=== PATIENT | female | born 1990 | race Caucasian/White ===

== ENCOUNTER 2017-08-17 10:23 | Emergency (ER) | payer OTHER ==
[2017-08-17 11:36] VITALS: BP 143/89
--- NOTE | 2017-08-17 12:02 | UC ---
HPI Febrile Illness - HPI Summary HPI Summary: [facility]. Caregiver reports that pt vomited X 2 last night and had a fever of 101 F. Was given a fever engineering aid this morning prior to arrival to clinic. [facility] caregivers concern for aspiration - History of Current Complaint Chief Complaint: UCRespiratory Time Seen by Provider: 08/17/17 11:05 Hx Obtained From: Family/Brick Cleaner Hx From Patient Unobtainable Due To: Other Hx Last Menstrual Period: unknown Onset/Duration: Started Hours Ago Timing: Intermittent Initial Severity: Mild Current Severity: Mild Pain Intensity: 0 Alleviating Factors: OTC Medicine Associated Signs and Symptoms: Vomiting - Risk Factors Serious Bacterial Infection Risk Factors: Negative - Additional Pertinent History Primary Care Physician: THONY - Allergy/Home Medications Allergies/Adverse Reactions: Allergies Allergy/AdvReac Type Severity Reaction Status Date / Time Sulfa (Sulfonamide Allergy Hives Verified 08/17/17 11:23 Antibiotics) Home Medications: Home Medications Acetaminophen TAB* [Tylenol TAB*] 650 mg PO Q4H PRN 08/17/17 [History Confirmed 08/17/17] Albuterol HFA INHALER* [Ventolin HFA Inhaler*] 1 puff INH Q4H PRN 08/17/17 [ History Confirmed 08/17/17] Budesonide Flexhaler 180 (NF) [Pulmicort Flexhaler 180 mcg/act (NF)] 180 mcg IN BID 08/17/17 [History Confirmed 08/17/17] Cetirizine* [ZyrTEC 10 MG TAB*] 10 mg PO DAILY 08/17/17 [History Confirmed 08/17] Diazepam TAB(*) [Valium TAB(*)] 10 mg PO Q8H PRN 08/17/17 [History Confirmed ] Ibuprofen TAB* [Motrin TAB* 400 MG] 400 mg PO Q6H PRN 08/17/17 [History Confirmed 08/17/17] Nystatin CREAM* [Nystatin Cream*] 1 applic TOPICAL BID PRN 08/17/17 [History Confirmed 08/17/17] Polyethylene Glycol 3350* [Miralax*] 17 gm PO DAILY 08/17/17 [History Confirmed 08/17/17] Ranitidine TAB (NF) [Zantac TAB (NF)] 150 mg PO DAILY 08/17/17 [History Confirmed 08/17/17] levETIRAcetam TAB* [Keppra TAB*] 500 mg PO BID 08/17/17 [History Confirmed 08/17] PMH/Surg Hx/FS Hx/Imm Hx Previously Healthy: No - Pt is wheelchair bound, non verbal, cognitive impaired - Surgical History Surgical History: Yes - Family History Known Family History: Positive: Cardiac Disease - Social History Occupation: Disabled Lives: Skilled Nursing Alcohol Use: None Substance Use Type: None Smoking Status (MU): Never Smoked Tobacco - Immunization History Most Recent Influenza Vaccination: 2015 Most Recent Tetanus Shot: 2007 Most Recent Pneumonia Vaccination: 2012 Review of Systems Constitutional: Fever Skin: Negative Eyes: Eye Redness ENT: Negative Respiratory: Negative Cardiovascular: Negative Gastrointestinal: Vomiting Genitourinary: Other - incontinent urine and stools Motor: Decreased ROM, Weakness Neurovascular: Other - decreased cognitive function Musculoskeletal: Decreased ROM Neurological: Weakness Is Patient Immunocompromised?: No All Other Systems Reviewed And Are Negative: Yes Physical Exam Triage Information Reviewed: Yes Completion Of Physical Exam Limited Due To: Other - pre-existing condition of significant cognitive impairment, non verbal Appearance: Ill-Appearing Vital Signs: Initial Vital Signs Temp 99.7 F 08/17/17 11:22 Pulse 106 08/17/17 11:22 Resp 22 08/17/17 11:22 BP 143/89 08/17/17 11:22 Pulse Ox 97 08/17/17 11:22 Vital Signs Reviewed: Yes Eye Exam: Other - scleritis ENT Exam: Other ENT: Positive: Other - limited exam, right ear canal cerument, left ear TM normal. Neck exam: Normal Neck: Positive: Nontender Respiratory Exam: Other Respiratory: Positive: Decreased breath sounds - bases Cardiovascular Exam: Normal Musculoskeletal: Positive: Strength Limited @, ROM Limited @ Neurological: Positive: Alert Psychological Exam: Normal - pt baseline as indicated by caregiver Skin Exam: Other - limited exam Diagnostics - Radiology No standard instances Radiology Interpretation Completed By: Radiologist - IMPRESSION: No evidence for aspiration pneumonia. Course/Dx - Course Course Of Treatment: Pt is non verbal, wheelchair bound with mulitiple comorbidites. Her rapid flu was negative, chest xray is negative, pt is incontinent of urine an dstool and is at high risk for infection. - Febrile Illness Differential Diagnoses: Fever of Unknown Origin, GI Disease, Pneumonia - Diagnoses Clinic Provider Diagnoses: fever unknown origin Discharge - Sign-Out/Discharge Documenting (check all that apply): Discharge - Discharge Plan Condition: Stable Disposition: HOME Prescriptions: Cephalexin SUSP* [Keflex SUSP 250 MG/5 ML*] 500 mg PO Q12H #200 ml Patient Education Materials: Fever in Adults (ED), Acute Nausea and Vomiting ( ED) Referrals: Pavel Ruiz MD [Primary Care Provider] - If Needed Additional Instructions: Please follow up with your PCP or return to clinic as needed. Your Rapid Flu test results were negative for Both Influenza A and Influenza B Xray: IMPRESSION: No evidence for aspiration pneumonia. - Billing Disposition and Condition Condition: STABLE Disposition: HOME
--- NOTE | 2017-08-17 12:16 | RAD ---
Indication: Emesis; concern for aspiration. Comparison: April 24, 2016 Technique: Sitting AP chest 1202 hours Report: Low lung volumes and mild subsegmental atelectasis. No compelling aspiration pneumonia evident. Negative for pleural effusion or pneumothorax. The heart, pulmonary vasculature, and mediastinal contours are unremarkable. IMPRESSION: No evidence for aspiration pneumonia.
== END 2017-08-17 12:36 | disposition home or self-care (01) ==
LOC: UCCORT 10:23
DX: R50.9 Fever, unspecified (principal); Z99.3 Dependence on wheelchair; Z88.2 Allergy status to sulfonamides
CPT/HCPCS: 71045; 87502; 99212; G0463

== ENCOUNTER 2018-08-28 09:25 | Emergency (ER) | payer MEDICAID, MEDICARE, OTHER ==
--- NOTE | 2018-08-28 10:32 | UC ---
General HPI - HPI Summary HPI Summary: Patient here with CARPENTER HELPER from [facility] - Patient nonverbal with profound delay. Has had a cough for the past three weeks. Saw PCP initially and said if it continued to go to urgent care. Patient has been getting nebulizers every 4 hours and cough medication every 6 hours around the clock. Has had a low grade temp. No vomiting. Loose stools. Does have a lot of mucus. Remains NPO as she has her G-tube. Has lost a few pounds. She normally is smiling and laughing but is not happy and often cries when she coughs. Meds: reviewed. - History of Current Complaint Chief Complaint: UCRespiratory Stated Complaint: COUGH,WHEEZING x3 WKS Time Seen by Provider: 08/28/18 10:09 Hx Last Menstrual Period: unknown Pain Intensity: 0 - Allergy/Home Medications Allergies/Adverse Reactions: Allergies Allergy/AdvReac Type Severity Reaction Status Date / Time Sulfa (Sulfonamide Allergy Hives Verified 08/28/18 10:14 Antibiotics) Home Medications: Home Medications guaiFENesin [Ri-Tussin] 10 ml PO Q6HR PRN 08/28/18 [History Confirmed 08/28/18] PMH/Surg Hx/FS Hx/Imm Hx Previously Healthy: No Neurological History: Other - profound developmental delay - Surgical History Surgical History: Unable to Obtain/Confirm - Family History Known Family History: Positive: Cardiac Disease - Social History Alcohol Use: None Substance Use Type: None Smoking Status (MU): Never Smoked Tobacco - Immunization History Most Recent Influenza Vaccination: 2015 Most Recent Tetanus Shot: 2007 Most Recent Pneumonia Vaccination: 2012 Review of Systems All Other Systems Reviewed And Are Negative: Yes Constitutional: Positive: Fever Respiratory: Positive: Cough Physical Exam Triage Information Reviewed: Yes Appearance: Well-Appearing Vital Signs: Initial Vital Signs Temp 98.9 F 08/28/18 10:07 Pulse 111 08/28/18 10:07 Resp 20 08/28/18 10:07 BP 102/60 08/28/18 10:07 Pulse Ox 98 08/28/18 10:07 Vital Signs Reviewed: Yes Eyes: Positive: Conjunctiva Inflamed ENT: Positive: Pharyngeal erythema, Other - Mucus in oral pharnyx. Poor dentition. Neck: Positive: Supple Respiratory: Positive: Other: - Coarse rhonchi heard throughout right lung. Diminished aeration over left lung Cardiovascular: Positive: RRR, No Murmur Abdomen Description: Positive: Nontender, Other: - gtube in place - no surrounding erythema or drainage Musculoskeletal: Positive: Other: - contracted upper and lower ext. Malnourished appearing Diagnostics - Radiology CXR Radiology Interpretation Completed By: Radiologist Summary of Radiographic Findings: No acute disease Chest CT Radiology Interpretation Completed By: Radiologist Summary of Radiographic Findings: No acute finding Course/Dx - Course Course Of Treatment: This is a 28 yr old with profound developmental delay who presents with 3 week cough history Assessment CXR: No acute finding Followed up with [facility] to determine if this is an aspiration event as I suspect she is aspirating on her secretion Chest CT: No acute finding I suspect her rhonchorous sounds are from microaspirationg Plan Recommend follow up with primary care physician. Follow up with platform material handling supervisor. Recommend switching rescue nebulizers to as needed Discontinue cough suppressant IF patient develops fever or signs of respiratory distress, increase in respiratory rate, work of breathing or low oxygen, return to urgent care or the ER - Diagnoses Provider Diagnosis: Aspiration into respiratory tract Discharge - Sign-Out/Discharge Documenting (check all that apply): Patient Departure All imaging exams completed and their final reports reviewed: Yes - Discharge Plan Condition: Fair Disposition: HOME Referrals: Nanci Meza DIETARY SERVICE AIDE [Primary Care Provider] - Additional Instructions: Recommend follow up with primary care physician. Follow up with platform material handling supervisor. Recommend switching rescue nebulizers to as needed Discontinue cough suppressant IF patient develops fever or signs of respiratory distress, increase in respiratory rate, work of breathing or low oxygen, return to urgent care or the ER - Billing Disposition and Condition Condition: FAIR Disposition: Home
[2018-08-28 12:19] VITALS: BP 108/64
== END 2018-08-28 12:25 | disposition home or self-care (01) ==
LOC: UCCORT 09:25
DX: T17.990A Other foreign object in respiratory tract, part unspecified in causing asphyxiation, initial encounter (principal); X58.XXXA Exposure to other specified factors, initial encounter; Y92.199 Unspecified place in other specified residential institution as the place of occurrence of the external cause; R05 Cough; R50.9 Fever, unspecified; R62.50 Unspecified lack of expected normal physiological development in childhood; Z88.2 Allergy status to sulfonamides
CPT/HCPCS: 71045; 71250; 99212; G0463

== ENCOUNTER 2018-12-12 11:25 | Emergency (ER) | payer OTHER ==
[2018-12-12 12:06] VITALS: BP 116/67
--- NOTE | 2018-12-12 12:44 | UC ---
Eye Complaint HPI - HPI Summary HPI Summary: 28 year old female with eye concern. c/o R eye redness that she awoke with today. Crusty and drainage noted according to medical staff. no fever. acting normal otherwise. [ End ] - History of Current Complaint Chief Complaint: UCEye Stated Complaint: BILATERAL EYE CONCERN Time Seen by Provider: 12/12/18 12:41 Hx Obtained From: Patient, Family/Plumbing Inspector Hx Last Menstrual Period: unknown Onset/Duration: Sudden Onset Pain Intensity: 0 Associated Signs And Symptoms: Positive: Drainage (Purulent) - Allergies/Home Medications Allergies/Adverse Reactions: Allergies Allergy/AdvReac Type Severity Reaction Status Date / Time Sulfa (Sulfonamide Allergy Hives Verified 12/12/18 11:52 Antibiotics) PMH/Surg Hx/FS Hx/Imm Hx Previously Healthy: Yes GI/ History: Gastroesophageal Reflux Neurological History: Seizures - Surgical History Surgical History: Unable to Obtain/Confirm Surgery Procedure, Year, and Place: G tube placed 10/18/17 - Family History Known Family History: Positive: Cardiac Disease - Social History Alcohol Use: None Substance Use Type: None Smoking Status (MU): Never Smoked Tobacco - Immunization History Most Recent Influenza Vaccination: 2016 Most Recent Tetanus Shot: 2007 Most Recent Pneumonia Vaccination: 2012 Review of Systems All Other Systems Reviewed And Are Negative: Yes Eyes: Positive: Blurred Vision, Drainage, Eye Redness Is Patient Immunocompromised?: No Physical Exam Triage Information Reviewed: Yes Appearance: Well-Appearing, No Pain Distress, Well-Nourished Vital Signs: Initial Vital Signs Temp 97.7 F 12/12/18 11:57 Pulse 98 12/12/18 11:57 Resp 20 12/12/18 11:57 BP 116/67 12/12/18 11:57 Pulse Ox 97 12/12/18 11:57 Vital Signs Reviewed: Yes Eye Exam: Normal Eyes: Positive: Conjunctiva Inflamed, Discharge ENT Exam: Normal Neck exam: Normal Neck: Positive: 1 Respiratory Exam: Normal Cardiovascular Exam: Normal Musculoskeletal Exam: Normal Neurological Exam: Normal Psychological Exam: Normal Skin Exam: Normal Eye Complaint Course/Dx - Differential Dx/Diagnosis Differential Diagnosis/HQI/PQRI: Conjunctivitis Provider Diagnosis: Conjunctivitis of right eye Discharge - Sign-Out/Discharge Documenting (check all that apply): Patient Departure All imaging exams completed and their final reports reviewed: No Studies - Discharge Plan Condition: Good Disposition: HOME Prescriptions: Erythromycin OPTH OINT* [Erythromycin 0.5% OPTH OINT*] 1 applic RIGHT EYE TID 7 Days #1 ophth.oint Patient Education Materials: Conjunctivitis (ED) Referrals: Nanci Meza ORDER TAKERS SUPERVISOR [Primary Care Provider] - If Needed - Billing Disposition and Condition Condition: GOOD Disposition: Home
== END 2018-12-12 13:02 | disposition home or self-care (01) ==
LOC: UCCORT 11:25
DX: H10.9 Unspecified conjunctivitis (principal); K21.9 Gastro-esophageal reflux disease without esophagitis; Z88.2 Allergy status to sulfonamides
CPT/HCPCS: 99212; G0463

== ENCOUNTER 2019-01-31 09:35 | Emergency (ER) | payer OTHER ==
[2019-01-31 10:15] VITALS: BP 116/96
--- NOTE | 2019-01-31 10:24 | UC ---
Respiratory Complaint HPI - HPI Summary HPI Summary: 28-year-old female, nonverbal with cerebral palsy history from a snf in [place] who has had an upper respiratory illness over the past few days. She vomited one time last evening and today the staff sent her here for chest x-ray concerns she may have aspirated. There is a caregiver with the patient. She is wheelchair bound and nonverbal. She does respond to voice. - History of Current Complaint Chief Complaint: UCRespiratory Stated Complaint: VOMITING Time Seen by Provider: 01/31/19 09:53 Hx Obtained From: Family/Math And Sciences Department Chair Hx Last Menstrual Period: unknown ?: No Onset/Duration: Gradual Onset Severity Initially: Mild Severity Currently: Mild Pain Intensity: 0 Character: Cough: Nonproductive - Nonproductive cough but loose. Aggravating Factors: Nothing Alleviating Factors: Nothing Associated Signs And Symptoms: Positive: Fever - Low-grade fever today but has not had a fever prior to this morning., URI, Nasal Congestion - Allergies/Home Medications Allergies/Adverse Reactions: Allergies Allergy/AdvReac Type Severity Reaction Status Date / Time Sulfa (Sulfonamide Allergy Hives Verified 01/31/19 10:15 Antibiotics) PMH/Surg Hx/FS Hx/Imm Hx Previously Healthy: No Respiratory History: Asthma - Surgical History Surgical History: Unable to Obtain/Confirm Surgery Procedure, Year, and Place: G tube placed 10/18/17 - Family History Known Family History: Positive: Cardiac Disease - Social History Lives: Long-Term Alcohol Use: None Substance Use Type: None Smoking Status (MU): Never Smoked Tobacco - Immunization History Most Recent Influenza Vaccination: 2015 Most Recent Tetanus Shot: 2007 Most Recent Pneumonia Vaccination: 2013 Review of Systems All Other Systems Reviewed And Are Negative: Yes Constitutional: Positive: Fever - Low-grade fever here. ENT: Positive: Nasal Discharge - Clear nasal coryza Respiratory: Positive: Cough - Moist cough worse today since vomiting once last evening. Musculoskeletal: Positive: Other: - Patient is contractured Is Patient Immunocompromised?: No Physical Exam Triage Information Reviewed: Yes Appearance: No Pain Distress, Well-Nourished, Ill-Appearing - Mildly ill appearing Vital Signs: Initial Vital Signs Temp 99.5 F 01/31/19 10:11 Pulse 143 01/31/19 10:11 Resp 26 01/31/19 10:11 BP 116/96 01/31/19 10:11 Pulse Ox 97 01/31/19 10:11 Vital Signs Reviewed: Yes Eyes: Positive: Conjunctiva Clear ENT: Positive: Pharynx normal, Nasal drainage - Clear nasal coryza, TMs normal - Unable to visualize tympanic membranes due to cerumen in ear canal., Uvula midline Neck: Positive: Supple Respiratory: Positive: No respiratory distress, No accessory muscle use, Rhonchi - Scattered rhonchi. Cardiovascular: Positive: No Murmur, Brisk Capillary Refill, Tachycardia Musculoskeletal: Positive: Other: - Patient's arms and legs are contractured. Neurological: Positive: Other: - Patient responds to voice but is nonverbal. Respiratory Course/Dx - Course Course Of Treatment: I feel is necessary for the patient to be evaluated in the emergency room because of her tachycardia, fever, moist cough. The caregiver with her feels comfortable taking her to the emergency room from here. - Differential Dx/Diagnosis Provider Diagnosis: URI (upper respiratory infection), Fever, Tachycardia Discharge ED - Sign-Out/Discharge Documenting (check all that apply): Patient Departure All imaging exams completed and their final reports reviewed: No Studies - Discharge Plan Condition: Fair Disposition: HOME-RECOMMEND TO ED Referrals: Nanci Meza REFRIGERATION SUPERVISOR [Primary Care Provider] - Additional Instructions: After the evaluation by the nurse practitioner, it is recommended that you go to the emergency room for further evaluation of cough, fever, possible aspiration where you should receive additional testing that can be completed in the emergency department. It is recommended that you go directly to the emergency department. This evaluation may include blood work or imaging. This testing will be directed and decided by the provider that evaluates you within the emergency department. If symptoms worsen, chute puller and call 911. - Billing Disposition and Condition Condition: FAIR Disposition: Home-Recommend to ED
== END 2019-01-31 10:22 | disposition home health service (06) ==
LOC: UCCORT 09:35
DX: J06.9 Acute upper respiratory infection, unspecified (principal); R50.9 Fever, unspecified; R00.0 Tachycardia, unspecified; H61.20 Impacted cerumen, unspecified ear; G80.9 Cerebral palsy, unspecified; Z88.2 Allergy status to sulfonamides
CPT/HCPCS: 99212; G0463

== ENCOUNTER 2019-03-08 10:03 | Emergency (ER) | payer OTHER ==
[2019-03-08 10:35] VITALS: BP 105/66
--- NOTE | 2019-03-08 11:30 | UC ---
Eye Complaint HPI - HPI Summary HPI Summary: 28-year-old female comes in with a chief complaint of bilateral eye discharge and redness. All started yesterday. Some the discharge is crusting. Cleaning and off makes it better. No clinic any upper respiratory tract infection symptoms. No known trauma. No contacts. - History of Current Complaint Chief Complaint: UCEye Stated Complaint: B/L EYE COMPLAINT Time Seen by Provider: 03/08/19 11:15 Hx Last Menstrual Period: unknown Pain Intensity: 0 - Allergies/Home Medications Allergies/Adverse Reactions: Allergies Allergy/AdvReac Type Severity Reaction Status Date / Time Sulfa (Sulfonamide Allergy Hives Verified 03/08/19 10:28 Antibiotics) PMH/Surg Hx/FS Hx/Imm Hx Previously Healthy: Yes - Surgical History Surgical History: Yes Surgery Procedure, Year, and Place: G tube placed 10/18/17 - Family History Known Family History: Positive: Cardiac Disease - Social History Alcohol Use: None Substance Use Type: None Smoking Status (MU): Never Smoked Tobacco - Immunization History Most Recent Influenza Vaccination: 2015 Most Recent Tetanus Shot: 2007 Most Recent Pneumonia Vaccination: 2012 Review of Systems All Other Systems Reviewed And Are Negative: Yes Constitutional: Positive: Negative Skin: Positive: Negative Eyes: Positive: Drainage, Eye Redness ENT: Positive: Negative Respiratory: Positive: Negative Cardiovascular: Positive: Negative Gastrointestinal: Positive: Negative Motor: Positive: Negative Neurovascular: Positive: Negative Musculoskeletal: Positive: Negative Neurological: Positive: Negative Psychological: Positive: Negative Is Patient Immunocompromised?: No Physical Exam Triage Information Reviewed: Yes Appearance: Well-Appearing, No Pain Distress, Well-Nourished Vital Signs: Initial Vital Signs Temp 97.9 F 03/08/19 10:30 Pulse 95 03/08/19 10:30 Resp 20 03/08/19 10:30 BP 105/66 03/08/19 10:30 Pulse Ox 97 03/08/19 10:30 Vital Signs Reviewed: Yes Eyes: Positive: Conjunctiva Inflamed, Discharge ENT: Negative: Nasal congestion Neck: Positive: Supple Respiratory: Positive: No respiratory distress Musculoskeletal Exam: Normal - NORMAL BASELINE Neurological Exam: Normal - NORMAL BASELINE Psychological: Positive: Normal Response To Family Skin Exam: Normal Eye Complaint Course/Dx - Differential Dx/Diagnosis Provider Diagnosis: Conjunctivitis Discharge ED - Sign-Out/Discharge Documenting (check all that apply): Patient Departure All imaging exams completed and their final reports reviewed: No Studies - Discharge Plan Condition: Stable Disposition: HOME Prescriptions: Tobramycin 0.3% OPHTH.TONE* 1 drop BOTH EYES Q4H #1 btl Patient Education Materials: Conjunctivitis (ED) Referrals: Nanci Meza, OUTDOOR PURSUITS INSTRUCTOR [Primary Care Provider] - Additional Instructions: FOLLOW UP WITH YOUR DOCTOR IF NOT COMPLETELY IMPROVED. GET REEVALUATED SOONER IF NOT IMPROVING OR YOUR CONDITION WORSENS OR ANY QUESTIONS OR CONCERNS - Billing Disposition and Condition Condition: STABLE Disposition: Home
== END 2019-03-08 11:35 | disposition home or self-care (01) ==
LOC: UCCORT 10:03
DX: H10.9 Unspecified conjunctivitis (principal); Z88.2 Allergy status to sulfonamides
CPT/HCPCS: 99212; G0463

== ENCOUNTER 2019-05-27 13:56 | Observation (INO) | payer OTHER ==
--- OUTSIDE RECORDS SUMMARY | 2019-05-27 14:12 | XMS REPORT | Continuity of Care Document ---
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 Social History Type Date Description Comments Sex Unknown ETOH Use Denies alcohol use Tobacco Use Start: Unknown Patient denies history of smoking Recreational Drug Use Denies Drug Use Allergies, Adverse Reactions, Alerts Active Allergies Reaction Severity Comments Date Sulfa Drugs 04/30/2018 Medications Active Medications SIG Qnty Indications Ordering Date Provider Budesonide 1 vial via neb twice Unknown 0.25mg/2ML a day Suspension Jevity 1.5 Jose Rafael 6am, 10am, 3pm 8pm- Unknown Liquid 45ml Levetiracetam 1.5 milliliters by Unknown 100mg/ml mouth once daily Solution Polyethylene Glycol One cap full daily Unknown 1000 Liquid Miralax as needed Unknown [id number] Packet Ranitidine HCL 10 milliliters by Unknown mouth twice a day as 150mg/10ML Syrup needed Cetirizine HCL 1 by peg tube every Unknown 10mg day Tablets Diazepam as needed for dental Unknown 5mg Tablets appointments Azelastine HCL 1 drop in both eyes Unknown (Ophthalmic) twice daily as 0.05% needed Solution Albuterol Sulfate nebulized every 4 Unknown hours as needed (2.5mg/3ML) 0.083% Nebulizer Nystatin-Triamcinolon apply a thin layer Unknown e to affected area 437413-1.1Unit/GM-% twice daily for Cream 10-14 days. Guaifenesin ac 5 milliliters by Unknown mouth three times a 100-10mg/5ML Syrup day as needed for cough Ibuprofen 200 1-2 tabs by mouth Unknown 200mg three times a day as Tablets needed Acetaminophen Unknown 650mg/20.3ML Solution Immunizations Description No Information Available Vital Signs Date Vital Result Comment 04/30/2018 3:06pm Respiratory Rate 15 /min Height 63 inches 5'3" Weight 88.38 lb per aid BMI (Body Mass Index) 15.7 kg/m2 BSA (Body Surface Area) 1.37 m2 [place] body weight in kilograms 52 kg Results Description No Information Available Procedures Description No Information Available Medical Devices Description No Information Available Encounters Description No Information Available Assessments Date Code Description Provider 05/13/2019 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 whether with hypoxia or hypercapnia 02/02/2019 R00.0 Tachycardia, unspecified Quin Vasquez M.D. 02/02/2019 G80.9 Cerebral palsy, unspecified Quin Vasquez M.D. 02/02/2019 J69.0 Pneumonitis due to inhalation of food and Quin Vasquez M.D. vomit 02/01/2019 J18.9 Pneumonia, unspecified organism Quin Vasquez M.D. 02/01/2019 J96.00 Acute respiratory failure, unspecified Quin Vasquez M.D. whether with hypoxia or hypercapnia 02/01/2019 R00.0 Tachycardia, unspecified Quin Vasquez M.D. 02/01/2019 G80.9 Cerebral palsy, unspecified Quin Vasquez M.D. 01/31/2019 J18.9 Pneumonia, unspecified organism Quin Vasquez M.D. 01/31/2019 J96.00 Acute respiratory failure, unspecified Quin Vasquez M.D. whether with hypoxia or hypercapnia 01/31/2019 R00.0 Tachycardia, unspecified Quin Vasquez M.D. 01/31/2019 G80.9 Cerebral palsy, unspecified Quin Vasquez M.D. Plan of Treatment 05/13/2019 - Cristian Palumbo MD,FACSZ93.1 Gastrostomy statusComments:Nursing has worries about dryness of the PEG tube on the outside, there is no leaking cracks, no blockages, no redness or significant leakage at the skin site, tolerating tube feeds. i would not recommend scheduled exchange unless there is problems with the tube function or leakage. this was a difficult PED tube to be placed. Functional Status Description No Information Available Mental Status Description No Information Available Referrals Description No Information Available
[2019-05-27] MEDS ORDERED: NS 0.9% 1000 ML** 1,000 ML IV ONE ×2 (14:45→16:48)
--- NOTE | 2019-05-27 14:47 | ED ---
Respiratory - HPI Summary HPI Summary: The patient is a 29 y/o F presenting to [facility] accompanied by family with a chief complaint of vomiting with possible aspiration occurring at 1200 today. Per family, the patient had been sitting at rest in the wheelchair, and she suddenly vomited twice. There is concern for aspiration. She has been seemingly dyspneic since the episode. She was recently discharged from the ICU in [place] for aspiration PNA with abx finished. PMHx: cerebral palsy, feeding tube, asthma with albuterol treatment. Nonsmoker, no EtOH, no substance use. Medications reviewed. Allergies noted. Level 5 Caveat secondary to patient's history of cerebral palsy and nonverbal. 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 Hx From Patient Unobtainable Due To: Other - Level 5 Caveat secondary to patient 's history of cerebral palsy, nonverbal Initial Severity: Moderate Current Severity: Mild Pain Intensity: 0 Sputum Amount: None Associated Signs and Symptoms: Dyspnea - Allergy/Home Medications Allergies/Adverse Reactions: Allergies Allergy/AdvReac Type Severity Reaction Status Date / Time Sulfa (Sulfonamide Allergy Hives Verified 03/08/19 10:28 Antibiotics) Home Medications: Home Medications Acetaminophen SUPP* [Tylenol Supp*] 650 mg RI Q6H PRN 05/27/19 [History Confirmed 05/27/19] Acetaminophen TAB* [Tylenol TAB*] 650 mg PO Q6H PRN 05/27/19 [History Confirmed 05/27/19] Albuterol 2.5MG/3ML (0.083%)* [Ventolin 2.5 MG/3 ML NEB.TONE*] 2.5 mg INH Q4H PRN 05/27/19 [History Confirmed 05/27/19] Bacitracin OINTMENT* 1 applic TOPICAL BID PRN 05/27/19 [History Confirmed ] Budesonide [Pulmicort] 1 mg INH BID PRN 05/27/19 [History Confirmed 05/27/19] Cetirizine* [ZyrTEC 10 MG TAB*] 10 mg PEG TUBE DAILY 05/27/19 [History Confirmed 05/27/19] Diazepam TAB(*) [Valium TAB(*)] 5 mg PEG TUBE DAILY PRN 05/27/19 [History Confirmed 05/27/19] Ibuprofen TAB* [Advil TAB*] 400 mg PEG TUBE Q6H PRN 05/27/19 [History Confirmed 05/27/19] Ketotifen Fumarate [Zaditor] 0.025 % BOTH EYES BID 05/27/19 [History Confirmed 05/27/19] Lactose-Reduced Food/Fiber [Jevity Plus] 948 ml PEG TUBE DAILY 05/27/19 [ History Confirmed 05/27/19] Nystatin CREAM* [Nystatin Cream*] 1 applic TOPICAL DAILY PRN 05/27/19 [History Confirmed 05/27/19] Sodium Phosphate ADULT ENEMA* [Fleet Enema*] 1 enema RI Q4D PRN 05/27/19 [ History Confirmed 05/27/19] levETIRAcetam [Keppra LIQ] 5 ml PEG TUBE QAM 05/27/19 [History Confirmed ] levETIRAcetam [Keppra] 10 ml PEG TUBE BEDTIME 05/27/19 [History Confirmed ] raNITIdine SOLN* (NF) ORALSYR [Zantac SOLN* ORALSYR (NF)] 75 mg PEG TUBE DAILY PRN 05/27/19 [History Confirmed 05/27/19] PMH/Surg Hx/FS Hx/Imm Hx Endocrine/Hematology History: Denies: Hx Diabetes Respiratory History: Reports: Hx Asthma Neurological History: Reports: Other Neuro Impairments/Disorders - cerebral palsy - Surgical History Surgical History: Yes Surgery Procedure, Year, and Place: G tube placed 10/18/17 Infectious Disease History: No Infectious Disease History: Denies: Traveled Outside the [place] in Last 30 Days - Family History Known Family History: Positive: Cardiac Disease - Social History Alcohol Use: None Hx Substance Use: No Substance Use Type: Reports: None Hx Tobacco Use: No Smoking Status (MU): Never Smoked Tobacco Review of Systems Positive: Other - dyspnea Positive: Vomiting All Other Systems Reviewed And Are Negative: No - Comments Additional Review of Systems Comments: Level 5 Caveat secondary to patient's history of cerebral palsy, nonverbal Physical Exam - Summary Physical Exam Summary: Constitutional: Well-developed, Well-nourished, Alert. Sitting in her wheelchair. (-) Distressed Skin: Warm, Dry HENT: Normocephalic; Atraumatic Eyes: Conjunctiva normal Neck: Musculoskeletal ROM normal neck. (-) JVD, (-) Stridor, (-) Tracheal deviation Cardio: Rhythm regular, rate tachycardic, Heart sounds normal; Intact distal pulses; Radial pulses are 2+ and symmetric. (-) Murmur Pulmonary/Chest wall: Effort normal. (-) Respiratory distress, (+) Mild wheezing bilaterally, (-) Rales Abd: Soft, (-) tenderness, (-) Distension, (-) Guarding, (-) Rebound Musculoskeletal: (-) Edema, Contracted upper extremities Lymph: (-) Cervical adenopathy Neuro: Alert, She does look around the room to stimuli Psych: Mood and affect Normal Triage Information Reviewed: Yes Vital Signs On Initial Exam: Initial Vitals Temp Pulse Resp BP Pulse Ox 99.5 F 120 18 127/97 96 05/27/19 13:59 05/27/19 13:59 05/27/19 13:59 05/27/19 13:59 05/27/19 13:59 Vital Signs Reviewed: Yes Completion Of Physical Exam Limited Due To: Level 5 - cerebral palsy, nonverbal Procedures - Sedation Patient Received Moderate/Deep Sedation with Procedure: No Diagnostics - Vital Signs Vital Signs Temp Pulse Resp BP Pulse Ox 05/27/19 13:59 99.5 F 120 18 127/97 96 - Laboratory Result Diagrams: 05/27/19 16:08 05/27/19 16:08 Lab Statement: Any lab studies that have been ordered have been reviewed, and results considered in the medical decision making process. - Radiology CXR Radiology Interpretation Completed By: Radiologist Summary of Radiographic Findings: Impression: No active cardiopulmonary disease. ED physician has reviewed this report. - EKG 1534 Cardiac Rate: Tachycardia - 122 bpm EKG Rhythm: Sinus Tachycardia Summary of EKG Findings: Sinus tachycardia at 122 bpm. No STEMI. ED physician has reviewed and interpreted this EKG. Re-Evaluation - Re-Evaluation First Eval Re-Evaluation Time: 17:30 Comment: Family aware and agree with admission. Disposition - Course Course Of Treatment: Patient is here with suspected aspiration. Patient does have coarse breath sounds bilaterally, is borderline hypoxemic, and tachycardic. Patient is a very hard sticks only once her cultures was sent. Patient had normal lactate. Patient is given a liter of IV fluids. Patient was recently admitted to the ICU in [place] for aspiration pneumonia so she is given a dose of cefepime. Patient was given some albuterol with mild improvement in her symptoms. Patient had a chest x-ray which did not show a pneumonia. However, given patient's hypoxemia, tachycardia, and quality of her breast risk status, patient was admitted to the hospital - Diagnoses Provider Diagnoses: Aspiration pneumonitis, Tachycardia, Hypoxemia - Physician Notifications Discussed Care Of Patient With: Ashley Thomson - hospitalist Time Discussed With Above Provider: 17:30 Instructed by Provider To: Other - I discussed the patients case with Dr. Thomson , who accepts the patient for admission. Discharge ED - Sign-Out/Discharge Documenting (check all that apply): Patient Departure - Patient accepted for admission by Dr. Thomson. - Discharge Plan Condition: Stable Disposition: ADMITTED TO [facility] Referrals: Nanci Meza, EPIC AMBULATORY ANALYST [Primary Care Provider] - - Billing Disposition and Condition Condition: STABLE Disposition: Admitted to [facility] - Attestation Statements Document Initiated by Fely: Yes Documenting Scribe: Betsy Garcia Provider For Whom Fely is Documenting (Include Credential): Dr. Edgar Sanchez MD Scribe Attestation: Betsy Reinoso scribed for Dr. Edgar Sanchez MD on 05/27/19 at 2027. Scribe Documentation Reviewed: Yes Provider Attestation: The documentation as recorded by the Betsy harrington accurately reflects the service I personally performed and the decisions made by me, Dr. Edgar Sanchez MD Status of Scribe Document: Viewed
[2019-05-27] MEDS ORDERED: Albuterol 2.5 MG/3 ML NEB.SOL* (0.083%) INH ONE (16:03)
[2019-05-27 16:33] LABS: Troponin I 0.01 ng/mL (<0.03)
[2019-05-27] MEDS ORDERED: Cefepime(*) 1 GM in NS 0.9% 50 ML* 50 ML IVPB ONE (16:36)
[2019-05-27 16:39] LABS: ABS Eosinophils 0.2 10^3/ul (0-0.6); ABS Monocytes 0.7 10^3/ul (0-0.8); ABS Neutrophils 6.4 10^3/ul (1.5-7.7); Calcium 8.2 mg/dL (8.6-10.3); Eosinophil % 2.3 %; Hematocrit 43 % (35-47); Hemoglobin 14.8 g/dL (12.0-16.0); Lymphocyte % 12.2 %; Mean Corpuscular HGB Conc 35 g/dL (31-36); Mean Corpuscular Hemoglobin 32 pg (27-31); Mean Corpuscular Volume 91 fL (80-97); Nucleated Red Blood Cells % 0.1; Platelet Count 189 10^3/uL (150-450); Potassium 4.2 mmol/L (3.5-5.0); Red Blood Count 4.67 10^6 /uL (3.70-4.87); Red Cell Distribution Width 13 % (10-15); Total Bilirubin 0.3 mg/dL (0.2-1.0); White Blood Count 8.3 10^3/uL (3.5-10.8)
[2019-05-27 16:45] LABS: Albumin/Globulin Ratio 1.7 (1-3); BUN/Creatinine Ratio 41.7 (8-20); EGFR African American 256.1 (>60); EGFR Non-African American 211.6 (>60); Globulin 2.4 g/dL (2-4); Total Protein 6.4 g/dL (6.4-8.9)
[2019-05-27] MEDS ORDERED: DEXTROSE IV ONE (17:00)
[2019-05-27] MEDS ORDERED: CEFEPIME 1 GM IV ONE (17:00)
[2019-05-27] MEDS ORDERED: Budesonide NEB* 0.5 MG/2 ML NEB.SOLN INH PRN (20:16)
[2019-05-27] MEDS: Albuterol 2.5 MG/3 ML NEB.SOL* (0.083%) INH PRN (21:39)
--- NOTE | 2019-05-27 21:50 | HP ---
CC: Nanci Meza NP * HISTORY AND PHYSICAL: DATE OF ADMISSION: 05/27/19 PROVIDER: Ana Maria Dickerson NP PRIMARY CARE PROVIDER: Nanci Meza NP ATTENDING PHYSICIAN WHILE IN THE HOSPITAL: Dr. Kimmie Ferreira * (dictated by Ana Maria Dickerson NP). CHIEF COMPLAINT: Vomiting, cough. HISTORY OF PRESENT ILLNESS: Ms. Rogers is a 29-year-old female with past medical history significant for cerebral palsy who presented to the emergency room after 1 episode of projectile vomiting while at a program. Her grandmother is her legal guardian. Staff from records and grandmother provided the history of present illness. Per the staff, they were called from program after the patient had 1 episode of projectile vomiting and concern for aspiration. The grandmother did report the patient was recently treated for pneumonia. Due to their concern of possible aspiration pneumonia, the patient was brought to the emergency room for further evaluation. The grandmother reports that the patient does usually receive albuterol neb on a daily basis every 4 hours for difficulty breathing, wheezing, and cough. They deny any recent fevers, chills. The patient is calm and cooperative, resting on the stretcher in the emergency room. While in the emergency room, the patient had routine lab work drawn which was essentially within normal limits. Chest x-ray showed no acute process. Due to the patient's tachypnea and presumed aspiration, Hospital Medicine was asked to see and evaluate for admission. PAST MEDICAL HISTORY: Significant for: 1. Cerebral palsy. The patient is nonverbal with profound intellectual disability and wheelchair bound. 2. History of seizure disorder. 3. Asthma. 4. Constipation. HOME MEDICATIONS: Include: 1. Jevity 1.2 jose 4 cans daily. 2. MiraLAX 17 g via PEG tube every other day. 3. Pulmicort 1 neb twice daily. 4. Keppra 1000 mg at bedtime. 5. Keppra 500 mg in the a.m. 6. Ranitidine 150 mg via PEG tube daily. ALLERGIES: To SULFA. FAMILY HISTORY: Maternal grandfather with a pacemaker and [place] in his 50s, maternal grandmother with bladder cancer. SOCIAL HISTORY: The patient currently resides at the [facility]. Her grandmother is her legal guardian. She does not smoke, drink, or use any illicit drugs. She is a full code. REVIEW OF SYSTEMS: Limited due to the patient's cerebral palsy. She has no grimacing with palpation of her abdomen. Her abdomen is soft. She is alert. Her eyes are open. She is nonverbal. PHYSICAL EXAMINATION GENERAL: At this time, Ms. Rogers is awake, eyes are open. She is resting on the stretcher in the emergency room. She does have a moist cough. She does not appear to be in any acute distress. VITAL SIGNS: Blood pressure 114/77, heart rate 123, respirations 30, O2 saturation 95% on room air, temperature 99.5. HEENT: Head is atraumatic. Mucous membranes are dry. Pupils are equal and reactive to light. Head is normocephalic. NECK: Supple. LUNGS: Clear to auscultation with coarse rhonchi in the upper airway. CARDIAC: She is tachycardic on the monitor. There are no rubs or gallops. ABDOMEN: Soft and nontender. Bowel sounds are present x4. EXTREMITIES: Upper and lower extremities are contracted. There is no edema. They are atrophied. NEUROLOGIC: She is nonverbal, unable to follow commands. Extremities are contracted. Her eyes are open. She is alert. SKIN: Intact. LABORATORY DATA AND DIAGNOSTIC STUDIES: WBCs are 8.3, RBCs 4.67, hemoglobin 14.8, hematocrit 43, platelet count 189. Sodium 139, potassium 4.2, chloride 106, carbon dioxide is 22, anion gap is 11, BUN 15, creatinine 0.36, lactic acid is 0.7. calcium 8.2. ASTs were 23, ALTs were 22, alkaline phosphatase was 80. She had a chest x-ray, radiologist's impression: No active cardiopulmonary disease. She had an electrocardiogram which showed sinus tachycardia at a rate of 122. ASSESSMENT AND PLAN: Ms. Rogers is a 29-year-old female with past medical history significant for profound cerebral palsy, asthma, constipation, and history of seizure disorder who presented to the emergency room after an episode of vomiting with concern for aspiration. She will be admitted under observation for: 1. Cough and congestion. The patient does have a cough. It appears that she likely has aspiration pneumonitis. I will start her on Augmentin via the PEG tube 600 mg b.i.d. Her upper airway does have coarse rhonchi. We will continue with respiratory suctioning p.r.n. She can have albuterol nebulizer as needed for shortness of breath and cough. We will continue her home Pulmicort as previously prescribed. She is n.p.o., she takes nothing by mouth. We can resume her Jevity tomorrow. I will leave her n.p.o. overnight and she can have free fluid water flushes with meds at 120 cc. 2. Seizure disorder. The patient will continue on her Keppra as previously prescribed. 3. Constipation. She will continue on MiraLAX every other day. 4. FEN. She gets Jevity 1.2 jose tube feeding. She is n.p.o., no oral intake. 5. DVT prophylaxis. She is low risk. I will place her on SCDs. 6. Code status. She is a full code. TIME SPENT: Time spent on this admission was 60 minutes, greater than half that time was spent at the bedside reviewing the events leading thus far to her hospitalization, performing physical exam, and reviewing my plan of care. I have discussed this with my attending, Dr. Kimmie Ferreira; she is in agreement with my plan. ANA MARIA DICKERSON, AEROSPACE TECHNICIAN [id number]/[facility] #: [id number] SHORTY
[2019-05-27] MEDS: levETIRAcetam LIQ* 500 MG/5 ML UDC PEG TUBE SCH (23:11)
[2019-05-28 05:57] LABS: ABS Eosinophils 0.2 10^3/ul (0-0.6); ABS Lymphocytes 1.5 10^3/ul (1.0-4.8); ABS Monocytes 0.7 10^3/ul (0-0.8); ABS Neutrophils 3.2 10^3/ul (1.5-7.7); Eosinophil % 4.1 %; Hematocrit 40 % (35-47); Hemoglobin 14.2 g/dL (12.0-16.0); Lymphocyte % 25.9 %; Mean Corpuscular HGB Conc 36 g/dL (31-36); Mean Corpuscular Hemoglobin 32 pg (27-31); Mean Corpuscular Volume 91 fL (80-97); Mean Platelet Volume 9.9 fL (7.4-10.4); Platelet Count 193 10^3/uL (150-450); Red Cell Distribution Width 13 % (10-15); White Blood Count 5.6 10^3/uL (3.5-10.8)
[2019-05-28 06:12] LABS: BUN/Creatinine Ratio 23.5 (8-20); Calcium 8.4 mg/dL (8.6-10.3); EGFR African American 273.6 (>60); EGFR Non-African American 226.1 (>60)
[2019-05-28] MEDS ORDERED: Amoxicill/Clavulan ES* ORALSYR 120 MG/ML PO SCH (09:00)
[2019-05-28] MEDS: Albuterol 2.5 MG/3 ML NEB.SOL* (0.083%) INH PRN ×3 (09:26→17:48)
[2019-05-28] MEDS: Famotidine SUSP ORALSYR 8 MG/ML PEG TUBE SCH (10:40)
[2019-05-28] MEDS: levETIRAcetam LIQ* 500 MG/5 ML UDC PEG TUBE SCH ×2 (10:41→21:12)
[2019-05-28] MEDS: Amoxicill/Clavulan ES* ORALSYR 120 MG/ML PO SCH ×2 (10:42→21:12)
--- NOTE | 2019-05-28 18:31 | PN ---
Subjective Date of Service: 05/28/19 Interval History: Pt is non-verbal. Grandmother states pt is improved but not back to normal due to persistent coughing. Objective Active Medications: Acetaminophen (Tylenol Supp*) 650 mg AR Q6H PRN PRN Reason: PAIN-MODERATE/TEMP >/= 100.4 Albuterol (Ventolin 2.5 Mg/3 Ml Neb.Fatemeh*) 2.5 mg INH RT.[id number] AWAKE PRN PRN Reason: sob/wheezing Last Admin: 05/28/19 17:48 Dose: 2.5 mg Amoxicillin/Clavulanate Potassium (Augmentin Es 120 Mg/Ml Susp*) 600 mg PO BID [facility] Last Admin: 05/28/19 10:42 Dose: 600 mg Budesonide (Pulmicort Neb*) 1 mg INH BID [facility] Famotidine (Pepcid Susp 8mg/Ml) 10 mg PEG TUBE DAILY [facility] Last Admin: 05/28/19 10:40 Dose: 10 mg Levetiracetam (Keppra Liq*) 500 mg PEG TUBE QAM [facility] Last Admin: 05/28/19 10:41 Dose: 500 mg Levetiracetam (Keppra Liq*) 1,000 mg PEG TUBE BEDTIME [facility] Last Admin: 05/27/19 23:11 Dose: 1,000 mg Vital Signs - 8 hr 05/28/19 05/28/19 05/28/19 11:15 13:53 15:12 Temperature 97.8 F 97.9 F Pulse Rate 77 75 100 Respiratory 18 18 20 Rate Blood Pressure 150/92 119/95 (mmHg) O2 Sat by Pulse 94 95 96 Oximetry 05/28/19 17:48 Temperature Pulse Rate 88 Respiratory 20 Rate Blood Pressure (mmHg) O2 Sat by Pulse 93 Oximetry Oxygen Devices in Use Now: None Appearance: Young female sitting up in bed, alert, NAD Eyes: No Scleral Icterus Ears/Nose/Mouth/Throat: Mucous Membranes Moist Respiratory: Symmetrical Chest Expansion and Respiratory Effort, - - very coarse breath sounds throughout, frequent cough Cardiovascular: NL Sounds; No Murmurs; No JVD, No Edema, - - tachycardic but regular Abdominal: NL Sounds; No Tenderness; No Distention, - - PEG tube in place Extremities: - - contractures noted Skin: No Rash or Ulcers Neurological: - - awake Result Diagrams: 05/28/19 05:38 05/28/19 05:38 Microbiology and Other Data: Microbiology 05/27/19 16:09 Blood Culture - Preliminary Blood Venous No Growth Day 1 Assess/Plan/Problems-Billing Miss Rogers is a 29 yo F with CP who presented to the ER after vomiting and having a possible aspiration event. - Patient Problems (1) Vomiting Current Visit: Yes Status: Acute Code(s): R11.10 - VOMITING, UNSPECIFIED SNOMED Code(s): 924274728 Comment: Pt was reportedly coughing violently and then vomited. Will trial PEG feeding with possible d/c home later today if she tolerates. No further vomiting since being in the hospital. (2) Cough Current Visit: Yes Status: Acute Code(s): R05 - COUGH SNOMED Code(s): 41603329 Comment: Pt was dx with pneumonia recently and has had a persistent cough. There was then concern with the vomiting episode that she aspirated. She was started on augmentin for coverage for possible aspiration pneumonia though this is not a clear diagnosis. She can likely go home later today if she tolerates her tube feed trial. (3) Seizure disorder Current Visit: Yes Status: Acute Code(s): G40.909 - EPILEPSY, UNSP, NOT INTRACTABLE, WITHOUT STATUS EPILEPTICUS SNOMED Code(s): 909438280 Comment: Continue keppra per tube. (4) DVT prophylaxis Current Visit: Yes Status: Acute Code(s): ZLR8739 - SNOMED Code(s): 368478111 Comment: SCDs. (5) Full code status Current Visit: Yes Status: Acute Code(s): Z78.9 - OTHER SPECIFIED HEALTH STATUS SNOMED Code(s): 698388133
[2019-05-28] MEDS: Budesonide NEB* 0.5 MG/2 ML NEB.SOLN INH SCH (19:40)
[2019-05-29] MEDS: Budesonide NEB* 0.5 MG/2 ML NEB.SOLN INH SCH (09:13)
[2019-05-29] MEDS: Albuterol 2.5 MG/3 ML NEB.SOL* (0.083%) INH PRN (09:15)
[2019-05-29] MEDS: Amoxicill/Clavulan ES* ORALSYR 120 MG/ML PO SCH (09:39)
[2019-05-29] MEDS: levETIRAcetam LIQ* 500 MG/5 ML UDC PEG TUBE SCH (09:39)
[2019-05-29] MEDS: Famotidine SUSP ORALSYR 8 MG/ML PEG TUBE SCH (09:39)
[2019-05-29 11:31] VITALS: BP 105/69
--- NOTE | 2019-05-29 23:16 | DS ---
CC: Nanci Meza NP * DISCHARGE SUMMARY: DATE OF ADMISSION: 05/27/19 DATE OF DISCHARGE: 05/29/19 PRIMARY CARE PROVIDER: Nanci Meza NP. PRINCIPAL DIAGNOSIS: Vomiting episode with possible aspiration. SECONDARY DIAGNOSES: 1. Cerebral palsy. 2. Seizure disorder. 3. Asthma. 4. Constipation. DISCHARGE MEDICATIONS: 1. MiraLax 17 g per tube every other day. 2. Pulmicort 1 neb twice daily. 3. Keppra 500 mg p.o. q.a.m., 1000 mg p.o. q.p.m. 4. Ranitidine 150 mg p.o. per tube daily. 5. Bacitracin ointment, apply topically twice daily p.r.n. wound. 6. Cetirizine 10 mg per tube daily. 7. Tylenol 650 mg per tube q.6 hours p.r.n. pain or per rectum q.6 hours p.r.n. pain. 8. Ibuprofen 400 mg per tube q.6 hours p.r.n. pain. 9. Valium 5 mg per tube p.r.n. procedure. 10. Guaifenesin 10 mL per tube q.6 hours p.r.n. cough. 11. Albuterol 1 neb inhaled q.4 hours p.r.n. shortness of breath. 12. Fleet Enema 1 enema [place] every 4 days p.r.n. constipation. 13. Nystatin cream apply topically daily p.r.n. rash. 14. Ketotifen 0.025% both eyes twice daily. 15. Augmentin 600 mg per tube b.i.d. x5 days. HOSPITAL COURSE: Ms. Rogers is a 29-year-old female with a history of cerebral palsy, who receives tube feeds from 2 a.m. to 10 a.m. and recently was diagnosed with pneumonia. She has been coughing significantly. Her grandmother reports that while coughing the patient vomited. There was concern for aspiration. The patient vomited another couple of times. Ultimately, she was brought into the emergency room due to the concern for aspiration. The patient was also started on Augmentin given the concern for aspiration. She continues to have coarse breath sounds and frequent cough; however, this has been ongoing. Generally, this however has improved by the day of discharge. The patient has been trialed on her tube feed rate and has tolerated this without difficulty. At this point, it is felt the patient is stable to be discharged back home. On the day of discharge, the patient is awake. She is sitting up in bed. She does have occasional cough. Her heart rate is tachycardic but this is chronic. Otherwise, her vital signs are stable. Cardiac exam reveals a normal S1, S2 with a tachycardic rate, she is regular. She has no lower extremity edema. Her lungs have mildly coarse breath sounds but generally better than yesterday. Abdomen is soft, nontender, nondistended, and there is a PEG tube in place. FOLLOWUP CONCERNS: The patient is being discharged back home today, 05/29/19. Activity level is as tolerated. Diet is Jevity formula at 100 mL per hour from 2 a.m. to 10 a.m. with free water flushes. CONDITION ON DISCHARGE: Stable. TIME SPENT: Thirty five minutes was spent discharging this patient. [id number]/[facility] #: [id number] SHORTY
== END 2019-05-29 14:00 | disposition home or self-care (01) ==
LOC: ED 13:56 → MED 19:59
PROVIDERS: ADMIT Nurse Practitioner; ATTEND Hospitalist
DX: R11.10 Vomiting, unspecified (principal); R05 Cough; G80.9 Cerebral palsy, unspecified; G40.909 Epilepsy, unspecified, not intractable, without status epilepticus; J45.909 Unspecified asthma, uncomplicated; K59.00 Constipation, unspecified; Z79.899 Other long term (current) drug therapy; R06.00 Dyspnea, unspecified
CPT/HCPCS: 36415; 71045; 80048; 80053; 83605; 84484; 85025; 87040; 93005; 94640; 99285; A9270-GY; G0378; J0692

== ENCOUNTER 2019-08-11 21:55 | Inpatient (IN) | payer OTHER ==
--- NOTE | 2019-08-11 22:27 | ED ---
Respiratory - HPI Summary HPI Summary: Per caregiver, patient history of nonverbal cerebral palsy, seizures, G-tube and asthma from residence home complains of cough, wheezing, fever up to 100.3 2 days. History of recurrent aspiration pneumonia. Caregiver states patient's breathing and cough improved after nebulizer treatment. Denies known Covid exposure, recent travel, vomiting, diarrhea, rash, change in urine, change in BM. Tylenol at 8 PM today. - History of Current Complaint Stated Complaint: FEVER/COUGH PER STAFF Time Seen by Provider: 08/11/19 22:07 Hx Obtained From: Family/Power Plant Technician Onset/Duration: Lasting Days Initial Severity: Moderate Current Severity: Mild Character: Wheezing, Cough (Nonproductive) Aggravating Factor(s): Nothing Alleviating Factor(s): Neb. Bronchodilators (Frequency Of Use), OTC Medications - Allergy/Home Medications Allergies/Adverse Reactions: Allergies Allergy/AdvReac Type Severity Reaction Status Date / Time Sulfa (Sulfonamide Allergy Hives Verified 03/08/19 10:28 Antibiotics) Home Medications: Home Medications Polyethylene Glycol 3350* [Miralax (17 GM DOSE SAVAGE)] 17 gm G TUBE EVERY OTHER DAY 08/17/17 [History Confirmed 05/27/19] guaiFENesin [Ri-Tussin] 10 ml PEG TUBE Q6HR PRN 08/28/18 [History Confirmed 12/07] Acetaminophen 650 mg SUPP [Tylenol 650 mg Supp] 650 mg NM Q6H PRN 05/27/19 [ History Confirmed 05/27/19] Acetaminophen TAB* [Tylenol TAB*] 650 mg PO Q6H PRN 05/27/19 [History Confirmed 05/27/19] Albuterol 2.5MG/3ML (0.083%)* [Ventolin 2.5 MG/3 ML NEB.TONE*] 2.5 mg INH Q4H PRN 05/27/19 [History Confirmed 05/27/19] Bacitracin OINTMENT* 1 applic TOPICAL BID PRN 05/27/19 [History Confirmed ] Budesonide [Pulmicort] 1 mg INH BID PRN 05/27/19 [History Confirmed 05/27/19] Cetirizine* [ZyrTEC 10 MG TAB*] 10 mg PEG TUBE DAILY 05/27/19 [History Confirmed 05/27/19] Diazepam TAB(*) [Valium TAB(*)] 5 mg PEG TUBE DAILY PRN 05/27/19 [History Confirmed 05/27/19] Ibuprofen TAB* [Advil TAB*] 400 mg PEG TUBE Q6H PRN 05/27/19 [History Confirmed 05/27/19] Ketotifen Fumarate [Zaditor] 0.025 % BOTH EYES BID 05/27/19 [History Confirmed 05/27/19] Lactose-Reduced Food/Fiber [Jevity 1.2 Jose Rafael Liquid] 948 ml PEG TUBE DAILY [History Confirmed 05/27/19] Nystatin CREAM* [Nystatin Cream*] 1 applic TOPICAL DAILY PRN 05/27/19 [History Confirmed 05/27/19] Sodium Phosphate ADULT ENEMA* [Fleet Enema*] 1 enema NM Q4D PRN 05/27/19 [ History Confirmed 05/27/19] levETIRAcetam [Keppra LIQ] 5 ml PEG TUBE QAM 05/27/19 [History Confirmed ] levETIRAcetam [Keppra LIQ] 10 ml PEG TUBE BEDTIME 05/27/19 [History Confirmed ] raNITIdine SOLN* (NF) ORALSYR [Zantac SOLN* ORALSYR (NF)] 75 mg PEG TUBE DAILY PRN 05/27/19 [History Confirmed 05/27/19] Amoxicill/Clavulan ES* ORALSYR [Augmentin ES 120 MG/ML SUSP*] 600 mg PO BID #60 ml 05/29/19 [Rx] PMH/Surg Hx/FS Hx/Imm Hx Endocrine/Hematology History: Denies: Hx Diabetes Cardiovascular History: Denies: Hx Pacemaker/ICD Respiratory History: Reports: Hx Asthma, Other Respiratory Problems/Disorders - aspiration pneumonia Denies: Hx Chronic Obstructive Pulmonary Disease (COPD) History: Denies: Hx Dialysis Musculoskeletal History: Reports: Other Musculoskeletal History - cerebral palsy Sensory History: Denies: Hx Contacts or Glasses, Hx Hearing Aid Opthamlomology History: Denies: Hx Contacts or Glasses Neurological History: Reports: Hx Developmental Delay, Other Neuro Impairments/ Disorders - cerebral palsy - Surgical History Surgery Procedure, Year, and Place: G tube placed 10/18/17 Infectious Disease History: Denies: Hx of Known/Suspected MRSA - Family History Known Family History: Positive: Cardiac Disease - Social History Alcohol Use: None Hx Substance Use: No Substance Use Type: Reports: None Hx Tobacco Use: No Smoking Status (MU): Never Smoked Tobacco Review of Systems Positive: Fever Eyes: Negative ENT: Negative Cardiovascular: Negative Positive: Cough Gastrointestinal: Negative Genitourinary: Negative Musculoskeletal: Negative Skin: Negative Neurological/Mental Status: Negative Psychological: Normal All Other Systems Reviewed And Are Negative: Yes Physical Exam Triage Information Reviewed: Yes Vital Signs Reviewed: Yes Appearance: Positive: Well-Appearing Skin: Positive: Warm Head/Face: Positive: Normal Head/Face Inspection Eyes: Positive: Normal Neck: Positive: Supple Respiratory/Lung Sounds: Positive: Clear to Auscultation Cardiovascular: Positive: Normal Abdomen Description: Positive: Nontender Musculoskeletal: Positive: Normal Neurological: Positive: Normal Psychiatric: Positive: Normal AVPU Assessment: Alert - Agnes Coma Scale Best Eye Response: 4 - Spontaneous Best Motor Response: 6 - Obeys Commands Best Verbal Response: 5 - Oriented Coma Scale Total: 15 Procedures - Sedation Patient Received Moderate/Deep Sedation with Procedure: No Diagnostics - Laboratory Result Diagrams: 08/11/19 23:46 08/11/19 23:46 Lab Statement: Any lab studies that have been ordered have been reviewed, and results considered in the medical decision making process. Disposition - Course Course Of Treatment: Per caregiver, patient history of nonverbal cerebral palsy , seizures, G-tube and asthma from residence home complains of cough, wheezing, fever up to 100.3 2 days. History of recurrent aspiration pneumonia. Caregiver states patient's breathing and cough improved after nebulizer treatment. Denies known Covid exposure, recent travel, vomiting, diarrhea, rash , change in urine, change in BM. Tylenol at 8 PM today. Tachycardic. Hypoxic. Febrile. Blood pressure normal limits. Chest x-ray unremarkable. CRP 76. Labs otherwise WNL. Flu Neg. Admitted to hospitalist. - Diagnoses Provider Diagnoses: Hypoxia, Respiratory infection Discharge ED - Sign-Out/Discharge Documenting (check all that apply): Patient Departure - Discharge Plan Condition: Stable Disposition: ADMITTED TO [facility] Referrals: Nanci Meza EXECUTIVE PRODUCER [Primary Care Provider] - - Billing Disposition and Condition Condition: STABLE Disposition: Admitted to [facility] - Attestation Statements Provider Attestation: pt seen by midlevel provider independently, based on their assessment, it was not necessary to present the case to me but I was available for consultation. I did not form a physician-patient relationship with the patient. The chart however, has been reviewed. am signing this note strictly in an administrative capacity.
[2019-08-11 23:42] LABS: Influenza A Molecular Negative (Negative); Influenza B Molecular Negative (Negative)
[2019-08-11 23:59] LABS: ABS Basophils 0.1 10^3/ul (0-0.2); ABS Eosinophils 0.1 10^3/ul (0-0.6); ABS Lymphocytes 2.2 10^3/ul (1.0-4.8); ABS Monocytes 0.8 10^3/ul (0-0.8); ABS Neutrophils 7.7 10^3/ul (1.5-7.7); Eosinophil % 0.5 %; Hematocrit 42 % (35-47); Hemoglobin 14.6 g/dL (12.0-16.0); Lymphocyte % 20.1 %; Mean Corpuscular HGB Conc 35 g/dL (31-36); Mean Corpuscular Hemoglobin 32 pg (27-31); Mean Corpuscular Volume 90 fL (80-97); Mean Platelet Volume 9.7 fL (7.4-10.4); Nucleated Red Blood Cells % 0.1; Platelet Count 215 10^3/uL (150-450); Red Blood Count 4.62 10^6 /uL (3.70-4.87); Red Cell Distribution Width 13 % (10-15); White Blood Count 10.8 10^3/uL (3.5-10.8)
--- OUTSIDE RECORDS SUMMARY | 2019-08-12 00:16 | XMS REPORT | Continuity of Care Document ---
:1990 External Reference #:[id number] Author Name HARRY Gordon Address [address] [place] [address] Care Team Providers Name Role Phone Deacon Cunningham - Neurology Care Team Information Group Controller [phone] Problems Active Problems Provider Date Infantile cerebral palsy HARRY Gordon Onset: 09/22/2013 Cerebral palsy HARRY Gordon Onset: 06/25/2014 Social History Type Date Description Comments Sex Unknown Tobacco Use Start: Unknown Never Smoked Cigarettes ETOH Use Denies alcohol use Recreational Drug Use Denies Drug Use Tobacco Use Start: Unknown Patient has never smoked Smoking Status Reviewed: 02/06/18 Patient has never smoked Allergies, Adverse Reactions, Alerts Active Allergies Reaction Severity Comments Date Sulfa 09/20/2010 Medications Active Medications SIG Qnty Indications Ordering Date Provider Famotidine 5 ml via peg tube 150ml Nanci RDiogenes 06/18/2019 40mg/5ML daily, replaces Storm, [employer] Suspension Rec ranitidine Senna-GRX 10 ML via Peg once 236ml K59.00 Nanci R. 06/05/2019 8.8mg/5ML daily if needed for Storm, [employer] Syrup constipation Multivitamin Nanci R. 03/06/2019 Liquid Storm, [employer]-C Multivitamin & dose per package 1bottle Nanci R. 03/06/2019 Mineral directions via Peg Storm, [employer]C Liquid tube daily Jevity 1.2 Jose Rafael 4 cans per day at 120units G80.9 Giuseppewnthunter R. 01/01/2019 100ml per hour via Storm, [employer]C Liquid peg tube Cetirizine HCL Take One Tablet Via 30tabs J30.9 Nanci R. 09/23/2018 10mg Peg Tube Every Day Derrick [employer] Tablets (Allergies) Breast Ultrasound bilateral breast Nanci R. 05/29/2018 ultrasound in August BOSSMAN Meza-C for follow up on breast masses Pump Supply Kit use as directed. 30units Giuseppewnti R. 04/18/2018 AGNIE MezaP-C Budesonide Inhale Contents Of 1 120units J45.998 Hilda Peck, 02/12/2018 1mg/2ML Vial Via Nebulizer 2 SOLAR HOT WATER INSTALLER Suspension Times A Day (Asthma) [facility] Use as Needed To 30units Giuseppewnti R. 02/06/2018 Catheter/16"/St Obtain Urine Sample Derrick [employer] raight/Intermittent " Misc Ketotifen Fumarate 1 drop in each eye 5ml Nanci R. 01/17/2018 twice daily for ANGIE MezaP-C 0.025% Solution ocular allergies Nystatin Apply Small Amount 30units Nanci R. 09/18/2016 To Affected Area prn ANGIE MezaP-C 012506Nesr/GM Cream (Fungal Rash) Miralax dissolve 17g (1 510units Ezekieli R. 08/17/2016 3350NF Powder capful/20cc) in 20cc BOSSMAN Meza-C and administer via gtube every other day Fleet Enema 1 per rectum every 399ml Nanic R. 05/18/2016 Fourth day without Derrick [employer] 7-19GM/118ML Enema BM Valium 1 by mouth 30 5tabs Nanci R. 04/03/2016 5mg Tablets minutes prior to Derrick, [employer]-C procedures if needed Guaifenesin 2 tsp qid for mucus 960ml J18.9 Giuseppewnti R. 01/28/2016 100mg/5ML Derrick [employer] Syrup Home Suction use to help clear 1units Nanci R. 01/28/2016 oral secretions dx Derrick [employer] Cerebral Palsy Nebulizer use with albuterol 1units G80.9 Giuseppewscott R. 06/25/2014 Device for breathing Derrick [employer]-C Nebulizer/Adult Mask use with albuterol 4units G80.9 Nanci R. 06/25/2014 for breathing ANGIE MezaP-C Kit treatment Albuterol Sulfate 1 Vial Via Nebulizer 225units Nanci R. 09/20/2010 Every 4 Hours as BOSSMAN Meza-C (2.5mg/3ML) 0.083% Directed prn Nebulizer (Asthma) Keppra 5ml via peg qAM, Unknown 100mg/ml 10mL via peg qHS Solution Ibuprofen 200 2 by mouth every 6 Unknown 200mg hours prn pain Tablets Acetaminophen pr - every 6 hours Unknown 650mg prn temp over 100.5. Suppository Do not use with acetaminophen tabs. Acetaminophen 2 tabs by mouth Unknown 325mg every 6 hours as Tablets needed for pain or fever > 100.5 - do not use with acetaminophen suppositories Bacitracin Zinc apply to superficial Unknown wounds/abrasions as 500Unit/GM Ointment needed Medications Administered in Office Medication SIG Qnty Indications Ordering Provider Date Medroxyprogesterone Acetate 1 MG BOSSMAN Crocker-Alex 02/15/2016 (Depo-Provera) Injection Injection Medroxyprogesterone Acetate 1 MG Lab and Office 11/29/2015 (Depo-Provera) Injection Services Injection Medroxyprogesterone Acetate 1 MG Lab and Office 09/08/2015 (Depo-Provera) Injection Services Injection Medroxyprogesterone Acetate 1 MG Lab and Office 06/22/2015 (Depo-Provera) Injection Services Injection Medroxyprogesterone Acetate 1 MG Lab and Office 03/24/2015 (Depo-Provera) Injection Services Injection Medroxyprogesterone Acetate 1 MG Lab and Office 12/31/2014 (Depo-Provera) Injection Services Injection Medroxyprogesterone Acetate 1 MG Lab and Office 10/15/2014 (Depo-Provera) Injection Services Injection Medroxyprogesterone Acetate 1 MG Lab and Office 07/28/2014 (Depo-Provera) Injection Services Injection Medroxyprogesterone Acetate 1 MG Lab and Office 05/12/2014 (Depo-Provera) Injection Services Injection Medroxyprogesterone Acetate 1 MG Lab and Office 02/12/2014 (Depo-Provera) Injection Services Injection Medroxyprogesterone Acetate 1 MG Lab and Office 11/25/2013 (Depo-Provera) Injection Services Injection Medroxyprogesterone Acetate 1 MG Lab and Office 09/09/2013 (Depo-Provera) Injection Services Injection Medroxyprogesterone Acetate 1 MG Lab and Office 06/17/2013 (Depo-Provera) Injection Services Injection Medroxyprogesterone Acetate 1 MG Lab and Office 03/25/2013 (Depo-Provera) Injection Services Injection Medroxyprogesterone Acetate 1 MG Lab and Office 01/06/2013 (Depo-Provera) Injection Services Injection Medroxyprogesterone Acetate 1 MG Lab and Office 10/21/2012 (Depo-Provera) Injection Services Injection Medroxyprogesterone Acetate 1 MG Lab and Office 08/01/2012 (Depo-Provera) Injection Services Injection Depo Provera--Injection--150 MG Lab and Office 04/26/2012 Injection Services Depo Provera--Injection--150 MG Lab and Office 02/08/2012 Injection Services Depo Provera--Injection--150 MG Lab and Office 11/16/2011 Injection Services Depo Provera--Injection--150 MG Lab and Office 08/22/2011 Injection Services Depo Provera--Injection--150 MG Lab and Office 05/26/2011 Injection Services Depo Provera--Injection--150 MG Kym Stewart [employer]C 03/03/2011 Injection Depo Provera--Injection--150 MG Lab and Office 12/16/2010 Injection Services Depo Provera--Injection--150 MG Nanci Meza, 09/20/2010 Injection [employer] Immunizations CPT Code Status Date Vaccine Lot # [id number] Given 06/18/2019 Tdap (Adacel) [id number] 07270 Given 02/18/2019 Influenza Virus Vaccine, Quadrivalent, 3 Yr > Quad, Preserv Free 79635 Given 02/11/2018 Influenza Virus Vaccine, Quadrivalent, 3 Yr > Quad, Preserv Free 69882 Given 02/15/2016 Influenza Virus Vaccine, Quadrivalent, 3 Yr > [id number] Quad, Preserv Free 31385 Given 02/15/2016 Prevnar-13 Pneumococcal Conjugate Vaccine [id number] 40004 Given 04/21/2013 Pneumovax 23 (PPSV23) 65+ years or high risk 2 to [id number] 63 year old 28833 Given 04/21/2013 Influenza Vaccine-Preservative Free 3 Yrs And [id number] Above 33358 Given 03/25/2008 Tdap (Adacel) 44573 Given 03/29/2004 DT (Adult) 81201 Given 08/16/2000 Hep B Vaccine, Ped/Adol Dose 3 Dose (Engerix or Recombivax) 45527 Given 01/24/2000 Hep B Vaccine, Ped/Adol Dose 3 Dose (Engerix or Recombivax) 68943 Given 12/20/1999 Hep B Vaccine, Ped/Adol Dose 3 Dose (Engerix or Recombivax) Vital Signs Date Vital Result Comment 06/18/2019 1:31pm BP Systolic 118 mmHg BP Diastolic 70 mmHg Heart Rate 72 /min Body Temperature 98.0 F Respiratory Rate 20 /min 06/05/2019 1:56pm BP Systolic 104 mmHg BP Diastolic 68 mmHg Heart Rate 88 /min Body Temperature 95.0 F Respiratory Rate 18 /min O2 % BldC Oximetry 95 % Results Test Acquired Date Facility Test Result H/L Range Note Laboratory test 05/27/2019 [facility] Lactic Acid 0.7 mmol/L Normal 0.5-2.0 1 finding [phone] CBC Auto Diff 05/27/2019 [facility] White Blood 8.3 Normal 3.5-10.8 [phone] Count 10^3/uL Red Blood Count 4.67 10^6/uL Normal 3.70-4.87 Hemoglobin 14.8 g/dL Normal 12.0-16.0 Hematocrit 43 % Normal 35-47 Mean Corpuscular Volume 91 fL Normal 80-97 Mean Corpuscular Hemoglobin 32 pg High 27-31 Mean Corpuscular HGB Conc 35 g/dL Normal 31-36 Red Cell Distribution Width 13 % Normal 10-15 Platelet Count 189 10^3/uL Normal 150-450 Mean Platelet Volume 10.0 fL Normal 7.4-10.4 Abs Neutrophils 6.4 10^3/uL Normal 1.5-7.7 Abs Lymphocytes 1.0 10^3/uL Normal 1.0-4.8 Abs Monocytes 0.7 10^3/uL Normal 0-0.8 Abs Eosinophils 0.2 10^3/uL Normal 0-0.6 Abs Basophils 0.0 10^3/uL Normal 0-0.2 Abs Nucleated RBC 0.0 10^3/uL Granulocyte % 76.4 % Lymphocyte % 12.2 % Monocyte % 8.8 % Eosinophil % 2.3 % Basophil % 0.3 % Nucleated Red Blood Cells % 0.1 Laboratory test 05/27/2019 [facility] Troponin-I 0.01 <0.03 2 finding [phone] (TnI) ng/mL Comp Metabolic 05/27/2019 [facility] Sodium 139 Normal 135-145 Panel [phone] mmol/L Potassium 4.2 mmol/L Normal 3.5-5.0 Chloride 106 mmol/L Normal 101-111 Co2 Carbon Dioxide 22 mmol/L Normal 22-32 Anion Gap 11 mmol/L Normal 2-11 Calcium 8.2 mg/dL Low 8.6-10.3 Albumin 4.0 g/dL Normal 3.2-5.2 Total Bilirubin 0.30 mg/dL Normal 0.2-1.0 Glucose 106 mg/dL High 70-100 Blood Urea Nitrogen 15 mg/dL Normal 6-24 Creatinine 0.36 mg/dL Low 0.51-0.95 BUN/Creatinine Ratio 41.7 High 8-20 Total Protein 6.4 g/dL Normal 6.4-8.9 Globulin 2.4 g/dL Normal 2-4 Albumin/Globulin Ratio 1.7 Normal 1-3 Alkaline Phosphatase 80 U/L Normal 34-104 Alt 22 U/L Normal 7-52 Ast 23 U/L Normal 13-39 Egfr Non- 211.6 >60 Egfr 256.1 >60 3 Laboratory test 05/27/2019 [facility] Pediatric Blood SEE RESULT 4 finding [phone] Culture BELOW Lipid Panel 05/19/2019 [facility] Triglycerides 98 mg /dL 5 [phone] Cholesterol 207 mg/dL 6 HDL Cholesterol 37.6 mg/dL 7 LDL Cholesterol 150 mg/dL 8 CMP - Comprehensive 05/19/2019 [facility] Sodium 142 mmol/L Normal 135-145 Metabolic [phone] Potassium 4.5 mmol/L Normal 3.5-5.0 Chloride 106 mmol/L Normal 101-111 Co2 Carbon Dioxide 27 mmol/L Normal 22-32 Anion Gap 9 mmol/L Normal 2-11 Glucose 82 mg/dL Normal 70-100 Blood Urea Nitrogen 12 mg/dL Normal 6-24 Creatinine 0.34 mg/dL Low 0.51-0.95 BUN/Creatinine Ratio 35.3 High 8-20 Calcium 9.5 mg/dL Normal 8.6-10.3 Total Protein 6.5 g/dL Normal 6.4-8.9 Albumin 4.1 g/dL Normal 3.2-5.2 Globulin 2.4 g/dL Normal 2-4 Albumin/Globulin Ratio 1.7 Normal 1-3 Total Bilirubin 0.50 mg/dL Normal 0.2-1.0 Alkaline Phosphatase 97 U/L Normal 34-104 Alt 22 U/L Normal 7-52 Ast 21 U/L Normal 13-39 Egfr Non- 226.1 >60 Egfr 273.6 >60 9 Laboratory test 05/19/2019 [facility] Levetiracetam 24.3 10 finding [phone] (Keppra) g/mL CBC W/Auto 05/19/2019 [facility] White Blood Count 7.0 Normal 3.5 Differential [phone] 10^3/uL -10 .8 Red Blood Count 4.87 10^6/uL Normal 3.70-4.87 Hemoglobin 15.6 g/dL Normal 12.0-16.0 Hematocrit 44 % Normal 35-47 Mean Corpuscular Volume 91 fL Normal 80-97 Mean Corpuscular Hemoglobin 32 pg High 27-31 Mean Corpuscular HGB Conc 35 g/dL Normal 31-36 Red Cell Distribution Width 12 % Normal 10-15 Platelet Count 241 10^3/uL Normal 150-450 Mean Platelet Volume 10.3 fL Normal 7.4-10.4 Abs Neutrophils 4.2 10^3/uL Normal 1.5-7.7 Abs Lymphocytes 2.2 10^3/uL Normal 1.0-4.8 Abs Monocytes 0.5 10^3/uL Normal 0-0.8 Abs Eosinophils 0.1 10^3/uL Normal 0-0.6 Abs Basophils 0.0 10^3/uL Normal 0-0.2 Abs Nucleated RBC 0.0 10^3/uL Granulocyte % 59.4 % Lymphocyte % 31.3 % Monocyte % 6.9 % Eosinophil % 1.9 % Basophil % 0.5 % Nucleated Red Blood Cells % 0.1 Laboratory 05/19/2019 [facility] TSH (Thyroid 2.05 Normal 0.34-5.60 test finding [phone] Stimulating mcIU/mL Horm) 1 [facility] Severe Sepsis and Septic Shock Management Bundle Measure requires all lactic acids initially measuring >2.0 mmol/L be repeated. 2 Troponin-I testing on Plasma Separator Tubes (PST) has a known false positive rate of 0.20-0.40%. All positive troponins reflex immediately to secondary confirmatory testing. Using the qcue Access Immunoassay systems, the 99th percentile upper reference limit was demonstrated to be < 0.03 ng/mL. 3 Because ethnic data is not always readily available, this report includes an eGFR for both -Americans and non- Americans. The National Kidney Disease Education Program (NKDEP) does not endorse the use of the MDRD equation for patients that are not between the ages of 18 and 70, are , have extremes of body size, muscle mass, or nutritional status, or are non- or non-. According to the National Kidney Foundation, irrespective of diagnosis, the stage of the disease is based on the level of kidney function: Stage Description GFR(mL/min/1.73 m(2)) 1 Kidney damage with normal or decreased GFR 90 2 Kidney damage with mild decrease in GFR 60-89 3 Moderate decrease in GFR 30-59 4 Severe decrease in GFR 15-29 5 Kidney failure <15 (or dialysis) 4 SEE RESULT BELOW Name: BEATRIZIMELDA L : [address]: Marika Chaudhary DO Acct: [id number] Unit: [id number] AGE: 29 Location: [place] [address] Re05/27/19 Dis: 05/29/19 SEX: F Status: DIS Susan SPEC: [id number] IRAIS: 05/27/19-160 [facility] [address]: Edgar Sanchez MD REQ: [id number] RECD: 05/27/19 STATUS: BANDAR PEREZ DR: Nanci Meza NP _ SOURCE: BLOOD,VENO SPDESC: ORDERED: Blood Cult, Pediatric Bottl Procedure Result Reported Site Pediatric Blood Culture Final 06/01/19- 1610 ML No Growth Day 5 * ML - Main Lab . END OF REPORT DEPARTMENT OF PATHOLOGY, [address] [place] [address] Anthony Prescott M.D. Director [facility] # [id number] 5 Desirable: <150 Borderline High: 150-199 High: 200-499 Very High: >500 6 Desirable: <200 Borderline High: 200-239 High: >239 7 Low: <40 Desirable: 40-60 High: >60 8 Desirable: <100 Near Optimal: 100-129 Borderline High: 130-159 High: 160-189 Very High: >189 9 Because ethnic data is not always readily available, this report includes an eGFR for both -Americans and non- Americans. The National Kidney Disease Education Program (NKDEP) does not endorse the use of the MDRD equation for patients that are not between the ages of 18 and 70, are , have extremes of body size, muscle mass, or nutritional status, or are non- or non-. According to the National Kidney Foundation, irrespective of diagnosis, the stage of the disease is based on the level of kidney function: Stage Description GFR(mL/min/1.73 m(2)) 1 Kidney damage with normal or decreased GFR 90 2 Kidney damage with mild decrease in GFR 60-89 3 Moderate decrease in GFR 30-59 4 Severe decrease in GFR 15-29 5 Kidney failure <15 (or dialysis) 10 REFERENCE VALUE 12.0 - 46.0 ADDITIONAL INFORMATION This test was developed and its performance characteristics determined by [facility] in a manner consistent with CLIA requirements. This test has not been cleared or approved by the U.S. Food and Drug Administration. Test Performed by: [facility] [address] [place] [address] Pants Presser: Nikos Akhtar M.D. 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 J18.9 Pneumonia , Storm, [employer]ER-C unspecified organism N64.89 Other specified disorders of breast Office Visit 01/01/2019 11:15a [facility] Shawnti R. G80.9 Cerebral palsy, Storm, [employer]-C unspecified Assessments Date Code Description Provider 06/18/2019 Z00.00 Encounter for general adult medical Shawnti R. Storm, F[employer]ER- C examination without abnormal findings 06/05/2019 R10.84 Generalized abdominal pain Shawnti R. 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 Storm, [employer]ER-C 06/05/2019 J18.9 Pneumonia, unspecified organism Shawnti R. Storm, [employer]ER-C 06/05/2019 G80.9 Cerebral palsy, unspecified Shawnti R. Storm, [employer]-C 06/05/2019 K59.00 Constipation, unspecified Shawnti R. Storm, [employer]-C 02/05/2019 J18.9 Pneumonia, unspecified organism Shawnti R. Storm, [employer]ER-C 02/05/2019 N64.89 Other specified disorders of breast Shawnti R. Storm, FILLER SP[employer]ER- C 01/01/2019 G80.9 Cerebral palsy, unspecified Shawnti R. Storm, [employer]-C Plan of Treatment 06/18/2019 - Shawnti R. Derrick, FILLER SPREADER-CZ00.00 Encounter for general adult medical examination without abnormal findingsComments:Tdap given today, medications reviewed and updated, Racker forms completed. labs are UTD, PAP testing would be more harmful than beneficial due to physical and mental status Functional Status Functional Condition Comment Date Status Electric wheelchair is used to ambulate Active Mental Status Description No Information Available Referrals Description No Information Available
[2019-08-12 00:37] LABS: Albumin 3.9 g/dL (3.2-5.2); Albumin/Globulin Ratio 1.3 (1-3); C Reactive Protein 76.44 mg/L (<8.01); Calcium 9.6 mg/dL (8.6-10.3); EGFR African American 226.8 (>60); EGFR Non-African American 187.4 (>60); Potassium 3.8 mmol/L (3.5-5.0); Total Bilirubin 0.5 mg/dL (0.2-1.0); Total Protein 6.9 g/dL (6.4-8.9)
[2019-08-12] MEDS ORDERED: Acetaminophen TAB* 325 MG PO PRN (01:42)
[2019-08-12] MEDS ORDERED: Albuterol 2.5 MG/3 ML NEB.SOL* (0.083%) INH PRN (01:42)
[2019-08-12] MEDS: Albuterol/Ipratropium NEB.SOL* Albuterol 2.5 MG/Ipratropium 0.5 MG 3 ML INH SCH ×5 (02:04→15:20)
[2019-08-12 02:12] LABS: Activated Partial Thrombo Time 36.9 seconds (26.0-38.0); INR 1.11 (0.82-1.09)
[2019-08-12] MEDS: Cefepime 2 GM in Dextrose(*) 2 GM/50 ML BAG IV SCH ×2 (02:12→15:38)
[2019-08-12] MEDS ORDERED: Azithromycin 500 mg/250 ml NS 500 MG/250 ML BAG IVPB SCH (02:30)
--- NOTE | 2019-08-12 04:24 | HP ---
CC: Nanci Meza NP* HISTORY AND PHYSICAL: DATE OF ADMISSION: 08/12/19 PRIMARY CARE PROVIDER: Nanci Meza NP. ATTENDING PHYSICIAN WHILE IN THE HOSPITAL: Dr. Pearson* (report being dictated by Jeyson Castro NP). CHIEF COMPLAINT: 1. Cough. 2. Fever. 3. Shortness of breath. HISTORY OF PRESENT ILLNESS: I would like to preface the report by saying the patient has a significant amount of cerebral palsy, she has intellectual developmental delay, she is nonverbal. She resides at the [facility]. She presents today, according to the staff that is with her, she has had a 2-day history of cough, fever and wheezing. She has a history of asthma, history of seizures, constipation, intellectual developmental delay and cerebral palsy. She has not had any sick contacts. The aide that is there does report that there was a sick contact with a staff member, but they worked at another house. There has been no reports of nausea, vomiting or diarrhea. No reports of hypoxia, but they have noted shortness of breath, trouble with cough and wheezing. There is a possibility that she may have aspirated, however, has not been seen that she has choking and it was not reported to this aide who is with her today. There was concern given the work of breathing she had at the [facility], in fact she was wheezing, she was tachycardic and that she had a low- grade fever. Because of this, she was brought into the hospital to be evaluated. When she presented, she was 88% on room air, she was tachycardic, she was mildly tachypneic in the mid 20s. She did get up to the 30s with her respiratory rate. Because of these findings, we were asked to evaluate for admission. PAST MEDICAL HISTORY: Significant for: 1. Cerebral palsy. 2. Intellectual developmental delay. 3. Seizure. 4. Asthma. 5. Constipation. PAST SURGICAL HISTORY: Unable to be obtained. MEDICATIONS: Home meds, we are working on updating this, include: 1. Zantac 75 mg PEG tube daily as needed. 2. Keppra 5 cc in the morning, 10 cc at bedtime. 3. Guaifenesin 10 cc PEG tube every 6 hours as needed. 4. Fleets Enema 1 enema [place] every 4 days as needed. 5. MiraLAX 17 g every other day. 6. Nystatin cream 1 application topically daily as needed. 7. Jevity 1.2 jose liquid, she takes 4 cans daily at bedtime with bolus feed overnight. 8. Zaditor 0.025% both eyes b.i.d. 9. Ibuprofen 400 mg PEG tube every 4 hours as needed. 10. Valium 5 mg PEG tube daily as needed. 11. Zyrtec 10 mg PEG tube daily. 12. Pulmicort 1 mg inhaled b.i.d. as needed. 13. Bacitracin 1 application topically b.i.d. as needed. 14. Augmentin 600 mg p.o. b.i.d. 15. Ventolin 2.5 mg inhaler every 4 hours as needed. 16. Tylenol 650 mg p.o. every 6 hours as needed. 17. Tylenol 650 mg suppository every 6 hours as needed. ALLERGIES TO MEDICATIONS: Include SULFA DRUGS. FAMILY HISTORY: According to old records, her maternal grandfather had a pacemaker and MS. Maternal grandmother had a bladder cancer. SOCIAL HISTORY: She resides at the [facility]. Her grandmother is her legal guardian. She does not smoke or drink. She is a full code. REVIEW OF SYSTEMS: Unable to be obtained from the patient given her underlying intellectual developmental delay. PHYSICAL EXAMINATION GENERAL: At this time, Ms. Rogers is a 29-year-old female patient. She is sitting in the ED stretcher. She appears to be in a mild to moderate amount of respiratory discomfort. She is awake. Her eyes are open. VITAL SIGNS: Blood pressure 102/87, pulse 101, respirations 28, O2 saturation 95%, temperature 98.9. HEENT: Head atraumatic and normocephalic. Eyes: Pupils are reactive to light. NECK: Supple. LUNGS: She did have wheezing throughout. HEART: Sounds S1 and S2. She is tachycardic. No murmurs, rubs or gallops. ABDOMEN: Soft, flat, nontender. Bowel sounds are present. EXTREMITIES: Her upper and lower extremities are contracted. She does have atrophy noted. There is no edema. NEUROLOGIC: Nonverbal. She does not follow commands. At this point, she is contracted throughout and no gross focal deficits. She is alert. SKIN: Grossly intact. DIAGNOSTIC STUDIES/LAB DATA: WBC 7.8, RBC of 4.62, hemoglobin 14.6, hematocrit of 42, platelet count of 215. Sodium 139, potassium 2.8, chloride 104, bicarb 26, BUN 6, creatinine 0.40. Glucose 103, lactic 1.2, calcium 9.6, total bili 0.5, AST 14, ALT 15, alk phos 70, CRP 76, albumin 2.9. Serology: Rapid flu was negative. She had a chest x-ray obtained today, which I did not appreciate any acute infiltrates or pulmonary edema. Old medical records were reviewed. ASSESSMENT AND PLAN: Ms. Rogers is a 29-year-old female patient coming into hospital today with complaints of cough, fever, shortness of breath with no known travel history. There is a history of aspiration pneumonia in the past, but no reports of vomiting. At this point, aspiration certainly is on the differential, I am going to put her on cefepime and azithromycin. She will be admitted on inpatient status for: 1. Shortness of breath. Again, etiology is unclear. Certainly aspiration pneumonia is on the differential, COVID is also another possibility, which we are testing for. This is a difficult case in the sense that I would prefer to use MDIs if she did have COVID and not aerosolize the virus, however, she cannot follow commands for an MDI, so I think nebulizers are her only option at this point, which I have ordered around the clock, starting it at every 4 hours , which we can titrate back as necessary. She is wheezing and I am ordering inhaled steroids. I do not want to put her on IV steroids just yet. We will start her on azithromycin and cefepime. We will get Legionella, Strep pneumo antigen and sputum culture if possible. She did have mild to moderate amount of work of breathing. She was breathing in the 30s. We are going to try to give her a nebulizer to see if we can get her slow down. If not, we may want to consider Vapotherm. I would give this for the work of breathing and not necessarily hypoxia. I would not intubate just yet because she would be a very difficult intubation and very difficult to wean her off. I would like to try to avoid that if possible in her particular case. So, we will continue with aggressive pulmonary toileting. We will try to get sputum cultures and Legionella antigen, Strep pneumo antigen and we will continue to follow. 2. Cerebral palsy. Continue with supportive care. 3. Intellectual developmental delay. Continue supportive care. 4. History of seizures. Seizure precautions will be ordered. We will continue her Keppra. 5. Asthma. Again, she does have an exacerbation. I will place her on nebs around the clock with inhaled steroids. 6. Constipation. We will continue her bowel regimen. 7. DVT prophylaxis: I am going to place her on heparin subcu. She is AT moderate risk. 8. Fluids, electrolytes and nutrition: We will continue her Jevity. She is n.p.o., she does not take oral intake. 9. Code status: Full code. TIME SPENT: Time spent on the admission was 60 minutes, greater than half the time was spent [id number] with the patient obtaining my history of physical; the other half time was spent going over the plan of care with the patient and implementing plan of care. I did discuss the plan of care with my attending, Dr. Pearson, who is in agreement. JEYSON CASTRO, THANH [id number]/CPS #: [id number] SHORTY
[2019-08-12] MEDS: Heparin VIAL(*) 5000 UNITS/ML VIAL (FIVE THOUSAND) SUBCUT SCH ×3 (06:16→21:10)
[2019-08-12] MEDS ORDERED: Budesonide NEB* 0.5 MG/2 ML NEB.SOLN INH SCH (07:00)
[2019-08-12 07:01] LABS: Urine Appearance Turbid; Urine Bilirubin Negative (Negative); Urine Blood Negative (Negative); Urine Color Amber; Urine Glucose Negative (Negative); Urine Ketones Trace (Negative); Urine Nitrite Negative (Negative); Urine Protein 1+(30 mg/dL) (Negative); Urine Specific Gravity 1.026 (1.010-1.030); Urine Urobilinogen Negative (Negative)
[2019-08-12 07:03] LABS: Urine Bacteria 1+ (Absent); Urine Red Blood Cell 2+(6-10/hpf) (Absent); Urine Squamous Epithelial Cell Present (Absent); Urine White Blood Cell 3+(>20/hpf) (Absent)
[2019-08-12] MEDS ORDERED: [UNRECOGNIZED DRUG - OTHER] PEG TUBE SCH (09:00)
[2019-08-12] MEDS ORDERED: LACTOSE REDUCED FOOD PEG TUBE SCH (09:00)
[2019-08-12] MEDS ORDERED: FIBER PEG TUBE SCH (09:00)
[2019-08-12] MEDS: Polyethylene Glycol 3350* 17 GM PACKET G TUBE SCH (11:26)
[2019-08-12] MEDS: levETIRAcetam LIQ* 500 MG/5 ML UDC PEG TUBE SCH ×2 (11:26→21:10)
--- NOTE | 2019-08-12 14:56 | PN ---
Progress Note - Progress Note Date of Service: 08/12/19 Note: Progress Note -- Critical Care 24 hour events/significant events: - Admitted to ICU for closer nursing observation while being ruled out COVID ROS: ROS unable to be obtained secondary to altered mental status Tele: NSR Vitals: Vital Signs 08/11/19 08/11/19 08/11/19 22:27 22:30 23:34 Temperature 98.9 F Pulse Rate 119 101 Respiratory 20 22 Rate Blood Pressure 117/83 (mmHg) O2 Sat by Pulse 88 99 98 Oximetry 08/11/19 08/12/19 08/12/19 23:35 00:00 00:04 Temperature Pulse Rate 105 105 Respiratory 23 Rate Blood Pressure 121/83 109/82 (mmHg) O2 Sat by Pulse 97 98 99 Oximetry 08/12/19 08/12/19 08/12/19 00:34 01:00 01:04 Temperature Pulse Rate 104 100 101 Respiratory 28 Rate Blood Pressure 110/91 102/87 (mmHg) O2 Sat by Pulse 97 95 95 Oximetry 08/12/19 08/12/19 08/12/19 01:34 01:43 02:00 Temperature Pulse Rate 96 94 96 Respiratory 20 19 22 Rate Blood Pressure 103/72 (mmHg) O2 Sat by Pulse 97 98 96 Oximetry 08/12/19 08/12/19 08/12/19 02:05 02:15 02:35 Temperature 97.9 F Pulse Rate 100 102 112 Respiratory 19 22 20 Rate Blood Pressure 97/66 97/66 112/78 (mmHg) O2 Sat by Pulse 98 98 95 Oximetry 08/12/19 08/12/19 08/12/19 03:00 04:00 04:04 Temperature Pulse Rate 97 95 Respiratory 17 21 21 Rate Blood Pressure 108/72 (mmHg) O2 Sat by Pulse 94 93 93 Oximetry 08/12/19 08/12/19 08/12/19 04:34 05:00 05:04 Temperature Pulse Rate 94 86 87 Respiratory 21 19 20 Rate Blood Pressure 116/70 97/73 (mmHg) O2 Sat by Pulse 97 95 96 Oximetry 08/12/19 08/12/19 08/12/19 05:34 05:57 06:21 Temperature 97.9 F Pulse Rate 84 108 111 Respiratory 20 21 19 Rate Blood Pressure 95/73 95/73 (mmHg) O2 Sat by Pulse 98 95 98 Oximetry 08/12/19 08/12/19 08/12/19 06:22 06:34 07:00 Temperature Pulse Rate 98 89 Respiratory 26 19 17 Rate Blood Pressure 113/84 107/85 (mmHg) O2 Sat by Pulse 100 99 Oximetry 08/12/19 08/12/19 08/12/19 07:04 07:35 08:00 Temperature Pulse Rate 97 107 100 Respiratory 21 22 15 Rate Blood Pressure 113/75 111/83 (mmHg) O2 Sat by Pulse 99 95 96 Oximetry 08/12/19 08/12/19 08/12/19 08:04 08:34 09:00 Temperature Pulse Rate 100 108 108 Respiratory 24 25 22 Rate Blood Pressure 105/72 105/67 (mmHg) O2 Sat by Pulse 95 93 91 Oximetry 08/12/19 08/12/19 08/12/19 09:04 09:35 10:00 Temperature Pulse Rate 104 104 Respiratory 18 Rate Blood Pressure 106/78 114/70 (mmHg) O2 Sat by Pulse 94 97 Oximetry 08/12/19 08/12/19 08/12/19 10:09 10:13 10:15 Temperature 97.9 F Pulse Rate 103 121 107 Respiratory 22 22 26 Rate Blood Pressure 114/70 128/85 118/78 (mmHg) O2 Sat by Pulse 97 97 96 Oximetry 08/12/19 08/12/19 08/12/19 10:31 10:46 11:00 Temperature Pulse Rate 100 104 104 Respiratory 13 20 22 Rate Blood Pressure 101/75 107/77 (mmHg) O2 Sat by Pulse 100 92 98 Oximetry 08/12/19 08/12/19 08/12/19 11:09 11:26 13:46 Temperature 98.2 F Pulse Rate 101 123 Respiratory 18 22 22 Rate Blood Pressure 114/77 128/85 (mmHg) O2 Sat by Pulse 100 97 Oximetry Intake and Output Last 24 Hours 08/10/19 08/11/19 08/12/19 08/13/19 06:59 06:59 06:59 06:59 Intake Total 50 Balance 50 Weight 106 lb 106 lb Intake: IV Fluids 50 Other: Estimated Void Medium Medium # Voids 1 O2: 4LNC Infusions: none Medications: Acetaminophen (Tylenol Tab*) 650 mg PO Q4H PRN PRN Reason: PAIN - MILD Albuterol (Ventolin 2.5 Mg/3 Ml Neb.Fatemeh*) 2.5 mg INH Q2H PRN PRN Reason: SOB/WHEEZING Albuterol/Ipratropium (Duoneb (Albuterol 2.5 Mg/Ipratropium 0.5 Mg)) 1 neb INH [id number] AWAKE [facility] Last Admin: 08/12/19 12:33 Dose: Not Given Budesonide (Pulmicort Neb*) 0.5 mg INH RT.BID [facility] Last Admin: 08/12/19 09:05 Dose: Not Given Famotidine (Pepcid Tab*) 40 mg PO DAILY [facility] Heparin Sodium (Porcine) (Heparin Vial(*)) 5,000 units SUBCUT Q8HR [facility] Last Admin: 08/12/19 06:16 Dose: 5,000 units Azithromycin (Zithromax 500 Mg/250 Ml) 500 mg in 250 mls @ 250 mls/hr IVPB Q24H [facility] Last Admin: 08/12/19 02:33 Dose: 250 mls/hr Cefepime HCl (Maxipime 2 Gm In Dextrose Duplex (*)) 2 gm in 50 mls @ 100 mls/ hr IV Q12H [facility] Last Admin: 08/12/19 02:12 Dose: 100 mls/hr Levetiracetam (Keppra Liq*) 500 mg PEG TUBE QAM [facility] Last Admin: 08/12/19 11:26 Dose: 500 mg Levetiracetam (Keppra Liq*) 1,000 mg PEG TUBE BEDTIME [facility] Multivitamins/Minerals (Theragran/Minerals Tab*) 1 tab PO DAILY [facility] Nft: Ketotifen Fumarate [Zaditor] 0 .025% 0.025 % BOTH EYES BID [facility] Polyethylene Glycol/Electrolytes (Miralax (17 Gm Dose Hugo)) 17 gm G TUBE EVERY OTHER DAY [facility] Last Admin: 08/12/19 11:26 Dose: 17 gm Physical Exam: Constitutional: awake, alert, no distress, no diaphoresis Head: normocephalic, atraumatic Eyes: no pallor, no icterus ENT: dry mucous membranes Neck: soft, supple CVS: normal rate, regular, no murmur Chest/Resp: bilateral air entry, rhonchi throughout, exam limited by upper airway noises. No acc muscle use Abdomen/GI: soft, nontender, nondistended, BS+, PEG in place Ext/Msk: warm, pulses+, no edema. Contracted Skin: intact, warm Neuro: awake, alert, nonverbal. Does not track, does not follow commands. Minimal movement all extremities. Labs: Laboratory Results - last 24 hr 08/11/19 08/11/19 08/11/19 23:05 23:46 23:46 WBC 10.8 RBC 4.62 Hgb 14.6 Hct 42 MCV 90 MCH 32 H MCHC 35 RDW 13 Plt Count 215 MPV 9.7 Neut % (Auto) 71.2 Lymph % (Auto) 20.1 Zavala % (Auto) 7.7 Eos % (Auto) 0.5 Baso % (Auto) 0.5 Absolute Neuts (auto) 7.7 Absolute Lymphs (auto) 2.2 Absolute Monos (auto) 0.8 Absolute Eos (auto) 0.1 Absolute Basos (auto) 0.1 Absolute Nucleated RBC 0.0 Nucleated RBC % 0.1 INR (Anticoag Therapy) APTT Sodium 139 Potassium 3.8 Chloride 104 Carbon Dioxide 26 Anion Gap 9 BUN 6 Creatinine 0.40 L Est GFR ( Amer) 226.8 Est GFR (Non-Af Amer) 187.4 BUN/Creatinine Ratio 15.0 Glucose 103 H Lactic Acid Calcium 9.6 Total Bilirubin 0.50 AST 14 ALT 13 Alkaline Phosphatase 70 C-Reactive Protein 76.44 H Total Protein 6.9 Albumin 3.9 Globulin 3.0 Albumin/Globulin Ratio 1.3 Urine Color Urine Appearance Urine pH Ur Specific [place] Urine Protein Urine Ketones Urine Blood Urine Nitrate Urine Bilirubin Urine Urobilinogen Ur Leukocyte Esterase Urine WBC (Auto) Urine RBC (Auto) Ur Squamous Epith Cells Urine Bacteria Urine Glucose Urine Ascorbic Acid Influenza A (Rapid) Negative Influenza B (Rapid) Negative 08/11/19 08/11/19 08/12/19 23:46 23:46 06:45 WBC RBC Hgb Hct MCV MCH MCHC RDW Plt Count MPV Neut % (Auto) Lymph % (Auto) [place]ala % (Auto) Eos % (Auto) Baso % (Auto) Absolute Neuts (auto) Absolute Lymphs (auto) Absolute Monos (auto) Absolute Eos (auto) Absolute Basos (auto) Absolute Nucleated RBC Nucleated RBC % INR (Anticoag Therapy) 1.11 H APTT 36.9 Sodium Potassium Chloride Carbon Dioxide Anion Gap BUN Creatinine Est GFR ( Amer) Est GFR (Non-Af Amer) BUN/Creatinine Ratio Glucose Lactic Acid 1.2 Calcium Total Bilirubin AST ALT Alkaline Phosphatase C-Reactive Protein Total Protein Albumin Globulin Albumin/Globulin Ratio Urine Color Sarah Urine Appearance Turbid Urine pH 5.0 Ur Specific [place] 1.026 Urine Protein 1+(30 mg/dl) A Urine Ketones Trace A Urine Blood Negative Urine Nitrate Negative Urine Bilirubin Negative Urine Urobilinogen Negative Ur Leukocyte Esterase 2+ A Urine WBC (Auto) 3+(>20/hpf) A Urine RBC (Auto) 2+(6-10/hpf) A Ur Squamous Epith Cells Present A Urine Bacteria 1+ A Urine Glucose Negative Urine Ascorbic Acid * A Influenza A (Rapid) Influenza B (Rapid) Imaging: Chest xray 08/10: no acute cardiopulmonary process Assessment: 29F with known medical history of cerebral palsy, developmental delays, seizures, asthma, and constipation, was sent from her [facility] for 2 days of cough, fever, wheezing. She receives tube feeding via PEG. She was admitted for concerns of aspiration PNA vs COVID vs asthma exacerbation. She was admitted to ICU for closer nursing monitoring. - PNA vs COVID vs asthma exacerbation - Hypoxia Plan: Neuro- - Baseline cerebral palsy. Monitor for any changes in mental status -Delirium prec; avoid BDZ CVS- - SBP is WNL -Maintain MAP>65 Resp- - Requiring 4LNC at this time to meet goal O2 saturations. - Treating for asthma exacerbation with inhaled nebulizers, azithromycin/ cefepime -Wean Fio2 to keep sat>92% -Bronchodilators PRN, Aspiration prec, Pulmonary Toilet ID- - PNA vs COVID vs asthma exacerbation - Currently on azithromycin and cefepime - Cultures are pending GI- -Nutrition: Continue jevity at 10cc/hr. Concern for aspiration PNA so will go slow. Records from [facility] are not available so will start trickle feeds and follow nutrition's recommendations -GI prophylaxis not indicated Renal- -strict I/O, replete to keep K>4, Mg>2 -incontinent Heme- - subq heparin for dvt prophylaxis Endo-Maintain BG<200, insulin protocol as needed Musculsk- pressure ulcer prophylaxis. Bedrest. Wounds- none Nutrition- TF DVT prophylaxis: subq heparin Disposition: Patient is currently in ICU while she is being ruled out for COVID given the fact that her [facility] did not supply her with an aide, she needs to be on isolation, history of seizures, and needs to be visualized from the nurses station Patient clinical status: stable Code Status: full
[2019-08-12] MEDS ORDERED: Albuterol/Ipratropium NEB.SOL* Albuterol 2.5 MG/Ipratropium 0.5 MG 3 ML INH PRN (17:45)
[2019-08-12] MEDS ORDERED: Budesonide NEB* 0.5 MG/2 ML NEB.SOLN INH PRN (17:49)
[2019-08-12] MEDS: KETOTIFEN 0.025% BOTH EYES SCH (20:47)
[2019-08-12] MEDS: Azithromycin 500 mg/250 ml NS 500 MG/250 ML BAG IVPB SCH (23:54)
[2019-08-13] MEDS: Cefepime 2 GM in Dextrose(*) 2 GM/50 ML BAG IV SCH ×2 (03:52→16:31)
[2019-08-13 04:48] LABS: Hematocrit 46 % (35-47); Hemoglobin 15.9 g/dL (12.0-16.0); Mean Corpuscular HGB Conc 34 g/dL (31-36); Mean Corpuscular Hemoglobin 32 pg (27-31); Mean Corpuscular Volume 92 fL (80-97); Red Blood Count 5.04 10^6 /uL (3.70-4.87); Red Cell Distribution Width 13 % (10-15); White Blood Count 9.9 10^3/uL (3.5-10.8)
[2019-08-13 05:18] LABS: ABS Basophils 0.1 10^3/ul (0-0.2); ABS Eosinophils 0.1 10^3/ul (0-0.6); ABS Lymphocytes 2.8 10^3/ul (1.0-4.8); ABS Monocytes 0.7 10^3/ul (0-0.8); ABS Neutrophils 6.2 10^3/ul (1.5-7.7); Eosinophil % 1.5 %; Lymphocyte % 28.4 %; Mean Platelet Volume 10.2 fL (7.4-10.4); Platelet Count 233 10^3/uL (150-450)
[2019-08-13 05:33] LABS: CO2 Carbon Dioxide 23 mmol/L (22-32); Calcium 9.1 mg/dL (8.6-10.3); Chloride 110 mmol/L (101-111); Sodium 142 mmol/L (135-145)
[2019-08-13 05:39] LABS: Blood Urea Nitrogen 14 mg/dL (6-24); EGFR African American 264.6 (>60); EGFR Non-African American 218.6 (>60); Glucose 87 mg/dL (70-100)
[2019-08-13] MEDS: Heparin VIAL(*) 5000 UNITS/ML VIAL (FIVE THOUSAND) SUBCUT SCH ×3 (05:40→20:53)
[2019-08-13 05:46] LABS: Anion Gap 9 mmol/L (2-11)
[2019-08-13] MEDS ORDERED: Multivitamins/Minerals TAB PO SCH (09:00)
[2019-08-13] MEDS: Multivitamins ADULT w/MIN LIQ* 15 ML UDC PO SCH (09:08)
[2019-08-13] MEDS: levETIRAcetam LIQ* 500 MG/5 ML UDC PEG TUBE SCH ×2 (09:08→20:53)
[2019-08-13] MEDS: Famotidine TAB* 20 MG PO SCH (09:08)
[2019-08-13] MEDS: KETOTIFEN 0.025% BOTH EYES SCH (09:08)
--- NOTE | 2019-08-13 11:43 | PN ---
Progress Note - Progress Note Date of Service: 08/13/19 Note: Progress Note -- Critical Care 24 hour events/significant events: - Admitted to ICU for closer nursing observation while being ruled out COVID ROS: ROS unable to be obtained secondary to altered mental status Tele: NSR Vitals: Vital Signs 08/11/19 08/11/19 08/11/19 22:27 22:30 23:34 Temperature 98.9 F Pulse Rate 119 101 Respiratory 20 22 Rate Blood Pressure 117/83 (mmHg) O2 Sat by Pulse 88 99 98 Oximetry 08/11/19 08/12/19 08/12/19 23:35 00:00 00:04 Temperature Pulse Rate 105 105 Respiratory 23 Rate Blood Pressure 121/83 109/82 (mmHg) O2 Sat by Pulse 97 98 99 Oximetry 08/12/19 08/12/19 08/12/19 00:34 01:00 01:04 Temperature Pulse Rate 104 100 101 Respiratory 28 Rate Blood Pressure 110/91 102/87 (mmHg) O2 Sat by Pulse 97 95 95 Oximetry 08/12/19 08/12/19 08/12/19 01:34 01:43 02:00 Temperature Pulse Rate 96 94 96 Respiratory 20 19 22 Rate Blood Pressure 103/72 (mmHg) O2 Sat by Pulse 97 98 96 Oximetry 08/12/19 08/12/19 08/12/19 02:05 02:15 02:35 Temperature 97.9 F Pulse Rate 100 102 112 Respiratory 19 22 20 Rate Blood Pressure 97/66 97/66 112/78 (mmHg) O2 Sat by Pulse 98 98 95 Oximetry 08/12/19 08/12/19 08/12/19 03:00 04:00 04:04 Temperature Pulse Rate 97 95 Respiratory 17 21 21 Rate Blood Pressure 108/72 (mmHg) O2 Sat by Pulse 94 93 93 Oximetry 08/12/19 08/12/19 08/12/19 04:34 05:00 05:04 Temperature Pulse Rate 94 86 87 Respiratory 21 19 20 Rate Blood Pressure 116/70 97/73 (mmHg) O2 Sat by Pulse 97 95 96 Oximetry 08/12/19 08/12/19 08/12/19 05:34 05:57 06:21 Temperature 97.9 F Pulse Rate 84 108 111 Respiratory 20 21 19 Rate Blood Pressure 95/73 95/73 (mmHg) O2 Sat by Pulse 98 95 98 Oximetry 08/12/19 08/12/19 08/12/19 06:22 06:34 07:00 Temperature Pulse Rate 98 89 Respiratory 26 19 17 Rate Blood Pressure 113/84 107/85 (mmHg) O2 Sat by Pulse 100 99 Oximetry 08/12/19 08/12/19 08/12/19 07:04 07:35 08:00 Temperature Pulse Rate 97 107 100 Respiratory 21 22 15 Rate Blood Pressure 113/75 111/83 (mmHg) O2 Sat by Pulse 99 95 96 Oximetry 08/12/19 08/12/19 08/12/19 08:04 08:34 09:00 Temperature Pulse Rate 100 108 108 Respiratory 24 25 22 Rate Blood Pressure 105/72 105/67 (mmHg) O2 Sat by Pulse 95 93 91 Oximetry 08/12/19 08/12/19 08/12/19 09:04 09:35 10:00 Temperature Pulse Rate 104 104 Respiratory 18 Rate Blood Pressure 106/78 114/70 (mmHg) O2 Sat by Pulse 94 97 Oximetry 08/12/19 08/12/19 08/12/19 10:09 10:13 10:15 Temperature 97.9 F Pulse Rate 103 121 107 Respiratory 22 22 26 Rate Blood Pressure 114/70 128/85 118/78 (mmHg) O2 Sat by Pulse 97 97 96 Oximetry 08/12/19 08/12/19 08/12/19 10:31 10:46 11:00 Temperature Pulse Rate 100 104 104 Respiratory 13 20 22 Rate Blood Pressure 101/75 107/77 (mmHg) O2 Sat by Pulse 100 92 98 Oximetry 08/12/19 08/12/19 08/12/19 11:09 11:26 13:46 Temperature 98.2 F Pulse Rate 101 123 Respiratory 18 22 22 Rate Blood Pressure 114/77 128/85 (mmHg) O2 Sat by Pulse 100 97 Oximetry Intake and Output Last 24 Hours 08/10/19 08/11/19 08/12/19 08/13/19 06:59 06:59 06:59 06:59 Intake Total 50 Balance 50 Weight 106 lb 106 lb Intake: IV Fluids 50 Other: Estimated Void Medium Medium # Voids 1 O2: 4LNC Infusions: none Medications: Acetaminophen (Tylenol Tab*) 650 mg PO Q4H PRN PRN Reason: PAIN - MILD Albuterol (Ventolin 2.5 Mg/3 Ml Neb.Fatemeh*) 2.5 mg INH Q2H PRN PRN Reason: SOB/WHEEZING Albuterol/Ipratropium (Duoneb (Albuterol 2.5 Mg/Ipratropium 0.5 Mg)) 1 neb INH [id number] AWAKE [facility] Last Admin: 08/12/19 12:33 Dose: Not Given Budesonide (Pulmicort Neb*) 0.5 mg INH RT.BID [facility] Last Admin: 08/12/19 09:05 Dose: Not Given Famotidine (Pepcid Tab*) 40 mg PO DAILY [facility] Heparin Sodium (Porcine) (Heparin Vial(*)) 5,000 units SUBCUT Q8HR [facility] Last Admin: 08/12/19 06:16 Dose: 5,000 units Azithromycin (Zithromax 500 Mg/250 Ml) 500 mg in 250 mls @ 250 mls/hr IVPB Q24H [facility] Last Admin: 08/12/19 02:33 Dose: 250 mls/hr Cefepime HCl (Maxipime 2 Gm In Dextrose Duplex (*)) 2 gm in 50 mls @ 100 mls/ hr IV Q12H [facility] Last Admin: 08/12/19 02:12 Dose: 100 mls/hr Levetiracetam (Keppra Liq*) 500 mg PEG TUBE QAM [facility] Last Admin: 08/12/19 11:26 Dose: 500 mg Levetiracetam (Keppra Liq*) 1,000 mg PEG TUBE BEDTIME [facility] Multivitamins/Minerals (Theragran/Minerals Tab*) 1 tab PO DAILY [facility] Nft: Ketotifen Fumarate [Zaditor] 0 .025% 0.025 % BOTH EYES BID [facility] Polyethylene Glycol/Electrolytes (Miralax (17 Gm Dose Huog)) 17 gm G TUBE EVERY OTHER DAY [facility] Last Admin: 08/12/19 11:26 Dose: 17 gm Physical Exam: Constitutional: awake, alert, no distress, no diaphoresis Head: normocephalic, atraumatic Eyes: no pallor, no icterus ENT: dry mucous membranes Neck: soft, supple CVS: normal rate, regular, no murmur Chest/Resp: bilateral air entry, rhonchi throughout, exam limited by upper airway noises. No acc muscle use Abdomen/GI: soft, nontender, nondistended, BS+, PEG in place Ext/Msk: warm, pulses+, no edema. Contracted Skin: intact, warm Neuro: awake, alert, nonverbal. Does not track, does not follow commands. Minimal movement all extremities. Labs: Laboratory Results - last 24 hr 08/11/19 08/11/19 08/11/19 23:05 23:46 23:46 WBC 10.8 RBC 4.62 Hgb 14.6 Hct 42 MCV 90 MCH 32 H MCHC 35 RDW 13 Plt Count 215 MPV 9.7 Neut % (Auto) 71.2 Lymph % (Auto) 20.1 [place] % (Auto) 7.7 Eos % (Auto) 0.5 Baso % (Auto) 0.5 Absolute Neuts (auto) 7.7 Absolute Lymphs (auto) 2.2 Absolute Monos (auto) 0.8 Absolute Eos (auto) 0.1 Absolute Basos (auto) 0.1 Absolute Nucleated RBC 0.0 Nucleated RBC % 0.1 INR (Anticoag Therapy) APTT Sodium 139 Potassium 3.8 Chloride 104 Carbon Dioxide 26 Anion Gap 9 BUN 6 Creatinine 0.40 L Est GFR ( Amer) 226.8 Est GFR (Non-Af Amer) 187.4 BUN/Creatinine Ratio 15.0 Glucose 103 H Lactic Acid Calcium 9.6 Total Bilirubin 0.50 AST 14 ALT 13 Alkaline Phosphatase 70 C-Reactive Protein 76.44 H Total Protein 6.9 Albumin 3.9 Globulin 3.0 Albumin/Globulin Ratio 1.3 Urine Color Urine Appearance Urine pH Ur Specific [place] Urine Protein Urine Ketones Urine Blood Urine Nitrate Urine Bilirubin Urine Urobilinogen Ur Leukocyte Esterase Urine WBC (Auto) Urine RBC (Auto) Ur Squamous Epith Cells Urine Bacteria Urine Glucose Urine Ascorbic Acid Influenza A (Rapid) Negative Influenza B (Rapid) Negative 08/11/19 08/11/19 08/12/19 23:46 23:46 06:45 WBC RBC Hgb Hct MCV MCH MCHC RDW Plt Count MPV Neut % (Auto) Lymph % (Auto) [place] % (Auto) Eos % (Auto) Baso % (Auto) Absolute Neuts (auto) Absolute Lymphs (auto) Absolute Monos (auto) Absolute Eos (auto) Absolute Basos (auto) Absolute Nucleated RBC Nucleated RBC % INR (Anticoag Therapy) 1.11 H APTT 36.9 Sodium Potassium Chloride Carbon Dioxide Anion Gap BUN Creatinine Est GFR ( Amer) Est GFR (Non-Af Amer) BUN/Creatinine Ratio Glucose Lactic Acid 1.2 Calcium Total Bilirubin AST ALT Alkaline Phosphatase C-Reactive Protein Total Protein Albumin Globulin Albumin/Globulin Ratio Urine Color Sarah Urine Appearance Turbid Urine pH 5.0 Ur Specific Charlotte 1.026 Urine Protein 1+(30 mg/dl) A Urine Ketones Trace A Urine Blood Negative Urine Nitrate Negative Urine Bilirubin Negative Urine Urobilinogen Negative Ur Leukocyte Esterase 2+ A Urine WBC (Auto) 3+(>20/hpf) A Urine RBC (Auto) 2+(6-10/hpf) A Ur Squamous Epith Cells Present A Urine Bacteria 1+ A Urine Glucose Negative Urine Ascorbic Acid * A Influenza A (Rapid) Influenza B (Rapid) Imaging: Chest xray 08/10: no acute cardiopulmonary process Assessment: 29F with known medical history of cerebral palsy, developmental delays, seizures, asthma, and constipation, was sent from her retirement for 2 days of cough, fever, wheezing. She receives tube feeding via PEG. She was admitted for concerns of aspiration PNA vs COVID vs asthma exacerbation. She was admitted to ICU for closer nursing monitoring. - PNA vs COVID vs asthma exacerbation - Hypoxia Plan: Neuro- - Baseline cerebral palsy. Monitor for any changes in mental status - History of seizures: apparently last seizure was as an infant, still takes Keppra. -Delirium prec; avoid BDZ CVS- - SBP is WNL -Maintain MAP>65 Resp- - on RA - Treating for asthma exacerbation/PNA with inhaled nebulizers, azithromycin/ cefepime -Keep sat>92% -Bronchodilators PRN, Aspiration prec, Pulmonary Toilet ID- - PNA vs COVID vs asthma exacerbation - Currently on azithromycin and cefepime - Cultures are pending GI- -Nutrition: Continue jevity at 40cc/hr per nutrition's recommendations -GI prophylaxis not indicated Renal- -strict I/O, replete to keep K>4, Mg>2 -incontinent Heme- - subq heparin for dvt prophylaxis Endo-Maintain BG<200, insulin protocol as needed Musculsk- pressure ulcer prophylaxis. Bedrest. Wounds- none Nutrition- TF DVT prophylaxis: subq heparin Disposition: Patient will be transferred to floor Patient clinical status: stable Code Status: full
[2019-08-13] MEDS: Azithromycin 500 mg/250 ml NS 500 MG/250 ML BAG IVPB SCH (23:33)
[2019-08-14] MEDS: Cefepime 2 GM in Dextrose(*) 2 GM/50 ML BAG IV SCH (03:15)
[2019-08-14] MEDS: Heparin VIAL(*) 5000 UNITS/ML VIAL (FIVE THOUSAND) SUBCUT SCH (05:29)
[2019-08-14] MEDS: Multivitamins ADULT w/MIN LIQ* 15 ML UDC PO SCH ×2 (07:31→11:43)
[2019-08-14] MEDS: levETIRAcetam LIQ* 500 MG/5 ML UDC PEG TUBE SCH ×3 (07:31→21:16)
[2019-08-14] MEDS: Famotidine TAB* 20 MG PO SCH ×2 (07:31→11:43)
[2019-08-14] MEDS: Polyethylene Glycol 3350* 17 GM PACKET G TUBE SCH (07:32)
--- NOTE | 2019-08-14 08:20 | PN ---
Subjective Date of Service: 08/14/19 Interval History: Transferred from ICU yesterday for asthma exacerbation vs PNA vs COVID. COVID test negative and likely other reason for patient's symptoms, so will DC iso precautions. Patient is without fevers, leukocytosis, hypoxia, or CXR findings. All culture data negative. Noted by RN to aspirate Jevity and meds through PEG-tube. Seems very unlikely this is a bacterial pneumonia - will DC antibiotics and monitor for fevers. Noted that patient presented similarly 2 months ago and was diagnosed with aspiration pneumonitis. Objective Active Medications: Acetaminophen (Tylenol Tab*) 650 mg PO Q4H PRN PRN Reason: PAIN - MILD Albuterol (Ventolin 2.5 Mg/3 Ml Neb.Fatemeh*) 2.5 mg INH Q2H PRN PRN Reason: SOB/WHEEZING Albuterol/Ipratropium (Duoneb (Albuterol 2.5 Mg/Ipratropium 0.5 Mg)) 1 neb INH Q4H PRN PRN Reason: SOB/WHEEZING Budesonide (Pulmicort Neb*) 0.5 mg INH BID PRN PRN Reason: SOB/WHEEZING Famotidine (Pepcid Tab*) 40 mg PO DAILY [facility] 234 BEDS AT THE [facility] Last Admin: 08/13/19 09:08 Dose: 40 mg Levetiracetam (Keppra Iv Premix*) 1,000 mg in 100 mls @ 400 mls/hr IVPB BEDTIME [facility] Levetiracetam (Keppra Iv Premix*) 500 mg in 100 mls @ 400 mls/hr IV DAILY [facility] Levetiracetam (Keppra Liq*) 500 mg PEG TUBE QAM COUNTS INCLUDE 234 BEDS AT THE [facility] Last Admin: 08/13/19 09:08 Dose: 500 mg Levetiracetam (Keppra Liq*) 1,000 mg PEG TUBE BEDTIME COUNTS INCLUDE 234 BEDS AT THE [facility] Last Admin: 08/13/19 20:53 Dose: 1,000 mg Multivitamins (Theragran W/Minerals Liq*) 15 ml PO DAILY COUNTS INCLUDE 234 BEDS AT THE [facility] Last Admin: 08/13/19 09:08 Dose: 15 ml Polyethylene Glycol/Electrolytes (Miralax (17 Gm Dose Hugo)) 17 gm G TUBE EVERY OTHER DAY COUNTS INCLUDE 234 BEDS AT THE [facility] Last Admin: 08/14/19 07:32 Dose: Not Given Vital Signs - 8 hr 08/14/19 08/14/19 04:00 07:33 Temperature 98.1 F 98.2 F Pulse Rate 97 102 Respiratory 20 22 Rate Blood Pressure 118/62 113/77 (mmHg) O2 Sat by Pulse 94 95 Oximetry Oxygen Devices in Use Now: Nasal Cannula Appearance: awake, nontoxic appearing, frail and cachectic Eyes: No Scleral Icterus Ears/Nose/Mouth/Throat: Mucous Membranes Moist Neck: NL Appearance and Movements; NL JVP, Trachea Midline Respiratory: - - clear anteriorly; not in respiratory distress Abdominal: - - soft, no grimace to palpation; G-tube in place Extremities: - - contracted, diffuse atrophy, no edema Neurological: - - does not respond to voice or track with eyes, closes eyes with visual threat, does not follow commands Result Diagrams: 08/13/19 04:33 08/13/19 04:33 Microbiology and Other Data: Microbiology 08/11/19 23:46 Aerobic Blood Culture - Preliminary Blood Venous No Growth Day 2 Anaerobic Blood Culture - Preliminary No Growth Day 2 08/11/19 23:46 Aerobic Blood Culture - Final Blood Venous Staphylococcus Hominis Anaerobic Blood Culture - Preliminary No Growth Day 2 Blood MRSA/MSSA (PCR) - Final Mrsa Negative S.aureus Negative 08/12/19 06:45 Urine Culture - Final Urine Strep Group B 08/12/19 17:35 Nasal Screen MRSA (PCR) - Final Nasal Mrsa Not Detected 08/12/19 06:45 Legionella Urinary Antigen - Final Urine Negative Legionella Antigen Streptococcus pneumoniae Ag Screen - Final Negative S. pneumo Antigen Assess/Plan/Problems-Billing Assessment: 29W with cerebral palsy, bedbound and nonverbal, with history of seizures, [facility] with dyspnea and wheezing in the setting of ongoing aspiration from PEG tube intake. - Patient Problems (1) Aspiration pneumonitis Comment: No fevers, leukocytosis, or findings on CXR. Witnessed several times to aspirate tube feeds. Admission 2 months ago for same. - reduce TF - is supposed to only get from 2am-10am - appreciate GI recs and will trial metoclopromide (2) Cough Comment: History of aspiration pneumonitis and asthma. - aspiration precautions as above - nebs prn (3) Seizure disorder Current Visit: No Comment: Continue keppra per tube. (4) DVT prophylaxis Comment: lovenox
[2019-08-14] MEDS ORDERED: levETIRAcetam 500 MG IVPREMIX* 500 MG/100 ML BAG IV SCH (09:00)
[2019-08-14] MEDS ORDERED: Metoclopramide IV* 5 MG/ML 2 ML VIAL IV PRN (13:34)
[2019-08-14] MEDS ORDERED: cefTRIAXone(*) 1 GM in NS 0.9% 50 ML* 50 ML IVPB SCH (15:00)
--- NOTE | 2019-08-14 16:30 | CONS ---
CONSULTATION REPORT: DATE OF CONSULT: 08/14/19 REQUESTING PHYSICIAN: Dr. Bonny Ventura. REASON FOR CONSULTATION: Aspiration, concern for high feeding residuals. HISTORY OF PRESENT ILLNESS: This is a 29-year-old female who is nonverbal with a history of significant cerebral palsy, developmental delay, who resides at the [facility]. The history of present illness is supported by the documentation and nursing staff. She was found to have a 2 day history of cough , fever and wheezing. The staff was also concerned of potential aspiration. The PEG tube has been functioning fine. Outside of the valve being difficult to unscrew; however, feeds have been going through normally. She was admitted to the hospital for optimization of her pulmonary condition. Her feedings were continued at 40 cc an hour. It seemed to have been continued throughout the day ; however, we are ordered from 2 a.m. to 10 a.m. The overnight nurse and morning nurse did have concerns that she was coughing frequently and when they were suctioning, they felt that they were bringing up the feeding solution. The remainder of the 14-point review of systems is unobtainable secondary to the patient's mental status. PAST MEDICAL HISTORY: Cerebral palsy, intellectual developmental delay, seizure , asthma, constipation. PAST SURGICAL HISTORY: Nothing in the documentation, but unable to independently verify. HOME MEDICATIONS: Include: 1. Zantac. 2. Keppra. 3. Guaifenesin. 4. Fleet Enema. 4. MiraLAX. 5. Nystatin. 6. Jevity 4 cans daily at bedtime with bolus overnight. 7. Zaditor. 8. Ibuprofen p.r.n. 9. Valium. 10. Zyrtec. 11. Pulmicort. 12. Bacitracin. 13. Augmentin. 14. Ventolin. 15. Tylenol. ALLERGIES TO MEDICATIONS: Include SULFA. FAMILY HISTORY: No known family history of GI cancer or inflammatory bowel disease by records. SOCIAL HISTORY: Resides at [facility]. Grandmother is legal guardian. Does not smoke or use alcohol. REVIEW OF SYSTEMS: Unable to be obtained given the patient's developmental delay. PHYSICAL EXAM: Vital Signs: Blood pressure 108/86, pulse 105, T-max 98.2, respiratory rate 18, she is 93% on 3 L. In general, alert, pleasant. Cardiovascular: Tachycardic. S1, S2. HEENT: Conjunctivae pink. Sclerae anicteric. Respiratory: Diminished at the base with wheeze. Abdomen: Soft, nontender, nondistended. Bowel sounds positive. Feeding tube in place. Flushes easily. DIAGNOSTIC STUDIES/LAB DATA: Hemoglobin 15.9, WBC 9.9. INR 1.11, creatinine 0.35. COVID-19 PCR was negative on 08/11/19. ASSESSMENT AND PLAN: This is a 29-year-old female with PEG tube and potentially elevated residuals. 1. 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 If ongoing difficulty, would need further workup for gastric outlet obstruction including barium and potentially endoscopy depending on grandmother' s wishes. The feeding tube is in place and it should be strongly noted that feeding tubes do not prevent aspiration, the feeding tube itself can increase the risk of aspiration. I would recommend to decrease the basal rate to 20 cc overnight from 2 a.m. to 10 a.m. to see how she does with the Reglan, can up titrate to original dosing if improving. Would only do a short course of Reglan , max for 3 to 4 days. 2. Developmental delay. [id number]/[facility] #: [id number] [facility]
[2019-08-14] MEDS ORDERED: levETIRAcetam 1000MG IVPREMIX* 1,000 MG/100 ML BAG IVPB SCH (21:00)
[2019-08-14] MEDS ORDERED: Enoxaparin(*) 40 MG/0.4 ML SYR SUBCUT SCH (21:00)
[2019-08-15] MEDS: Famotidine TAB* 20 MG PO SCH (09:11)
[2019-08-15] MEDS: levETIRAcetam LIQ* 500 MG/5 ML UDC PEG TUBE SCH (09:11)
[2019-08-15] MEDS: Multivitamins ADULT w/MIN LIQ* 15 ML UDC PO SCH (09:12)
[2019-08-15 12:27] VITALS: BP 96/62
--- NOTE | 2019-08-15 20:37 | DS ---
CC: Nanci Meza NP * DISCHARGE SUMMARY: DATE OF ADMISSION: 08/12/19 DATE OF DISCHARGE: 08/15/19 PRIMARY CARE PROVIDER: Nanci Meza NP PRIMARY DIAGNOSES: 1. Chronic aspirations. 2. Possible mild asthma exacerbation. SECONDARY DIAGNOSES: 1. Cerebral palsy complicated by severe intellectual delay, nonverbal, bedbound , status post PEG tube. 2. History of seizures. DISCHARGE MEDICATIONS: 1. Tylenol 650 every 6 hours as needed for pain or fever. 2. Levetiracetam 500 mg in the morning, 1000 mg in the evening. 3. Ondansetron 4 mg every 8 hours as needed for nausea and vomiting. 4. Famotidine 40 mg daily. 5. Cetirizine 10 mg daily. 6. Budesonide 1 inhalation twice a day. 7. Albuterol 2 puffs every 4 hours as needed for shortness of breath. 8. Diazepam 5 mg daily. 9. Multivitamin. 10. Guaifenesin 10 mL every 6 hours as needed for cough. HISTORY OF PRESENT ILLNESS: Ms. Rogers is a 29-year-old woman with cerebral palsy with intellectual delay, who is nonverbal, bedbound, status post PEG tube. She also has a history of seizure disorder and asthma and resides at the [facility]. She presents according to staff for a 2-day history of cough, fever, and wheezing. The patient has not had recent contacts. No reports of nausea, vomiting, or diarrhea. The patient does have history of chronic aspiration from PEG tube and had an admission here back in May for aspiration and it was recommended that she continue tube feeds from 2 a.m. to 10 a.m. only after that. There is a possibility that the patient may have aspirated again, but the aides are not sure that she has been choking, so is the aide that is with her today. They do think that she has been wheezing and had a fast heart rate with a low-grade fever, although it is unclear how this was measured, so she was brought to the hospital to be evaluated. HOSPITAL COURSE: In the emergency room, she was 88% on room air with tachycardia and tachypnea, so we were asked to evaluate the patient for admission. She was initially started on antibiotics for possible community- acquired pneumonia, although she was not noted to have a measured fever throughout hospitalization and she also was without leukocytosis. Given status in the snf, the patient was tested for COVID and this test result came back negative, so isolation precautions were discontinued. She was treated with nebulizers and her wheezing resolved. She was noted to aspirate significantly throughout admission. She was seen and evaluated by GI for concern for PEG tube malfunction; however, it was deemed that PEG tube was properly in place and working well. GI consult considers that she may have had a postinfectious gastroparesis leading to higher residual volumes and recommended trial of Reglan, although after consult the patient was able to tolerate her tube feeds and medications and not required Reglan. Because the feeding tube was in place and positioned well, it was recommended that if the patient continues to have ongoing symptoms, she may pursue further workup for gastric outlet obstruction; however, it is to be noted that feeding tubes do not prevent aspiration and they can in fact increase risk of aspiration. Once the patient was able to be titrated off supplemental oxygen, she was deemed ready for discharge back to the [facility]. PHYSICAL EXAMINATION: Afebrile, heart rate 106, blood pressure 96/62, respiratory rate 20, oxygen saturation 96% on room air. In general, she is a chronically ill- appearing, cachectic woman, very frail, not interactive. HEENT : With moist mucous membranes. Chapped lips. OP clear. Neck: Supple. Lungs : Clear anteriorly without wheeze. No increased work of breathing. Not in respiratory distress. Abdomen: Soft. No grimace to palpation. G-tube in place. Extremities are contracted with diffuse atrophy. No edema. Neuro: Does not respond to voice or track with eyes. Will close eyes with visual threat. Does not follow commands. DIAGNOSTIC STUDIES/LAB DATA: CBC, BMP, and LFTs unremarkable. COVID-19 PCR negative. Flu swab negative. Urine culture with over 100,000 CFUs of group B strep. Urine antigens for legionella and Strep pneumo were negative. Chest x-ray without acute cardiopulmonary process by radiograph. DISCHARGE PLAN: The patient will be discharged to follow up with her primary care physician and to live at her snf in the [facility]. She will need ongoing monitoring of her tube feeds with recommendation currently to give a low amount between hours of 2 a.m. and 10 a.m. as this is what was recommended in the past and she seemed to tolerate well; however, ongoing goals of care discussions need to be had regarding utilize of PEG tube given that this increases aspiration risk and the patient has now presented to the hospital twice this year for the same issue. The only changes to her home medications are the addition of Zofran for nausea and vomiting. DIET: Tube feeds, limited. ACTIVITY: The patient is bedbound. DISPOSITION: [facility]. CONDITION: Stable. TIME SPENT: Approximately 60 minutes was spent on discharge of this patient, more than half of which was spent with care coordination at bedside for interview and exam. [id number]/[facility] #: [id number] [facility]
== END 2019-08-15 15:30 | disposition home or self-care (01) | DRG 137 ==
LOC: ED 21:55 → ICU 08-12 01:35 → MED 08-13 11:55
PROVIDERS: ADMIT Family Medicine; ATTEND Internal Medicine
DX: J69.0 Pneumonitis due to inhalation of food and vomit (principal); R64 Cachexia; J45.901 Unspecified asthma with (acute) exacerbation; Z68.1 Body mass index [BMI] 19.9 or less, adult; G80.9 Cerebral palsy, unspecified; R09.02 Hypoxemia; F81.9 Developmental disorder of scholastic skills, unspecified; G40.909 Epilepsy, unspecified, not intractable, without status epilepticus; K31.84 Gastroparesis; R00.0 Tachycardia, unspecified; R06.82 Tachypnea, not elsewhere classified; Z20.828 Contact with and (suspected) exposure to other viral communicable diseases; Z93.1 Gastrostomy status; Z87.01 Personal history of pneumonia (recurrent); Z86.69 Personal history of other diseases of the nervous system and sense organs; Z74.01 Bed confinement status; Z79.899 Other long term (current) drug therapy; Z88.2 Allergy status to sulfonamides; Z82.49 Family history of ischemic heart disease and other diseases of the circulatory system; Z80.52 Family history of malignant neoplasm of bladder
CPT/HCPCS: 36415; 71045; 80048; 80053; 81003; 81015; 83605; 85025; 85610; 85730; 86140; 87040; 87077; 87086; 87150; 87205; 87641; 87899; 99285; A9270-GY; J0456; J0692; J1644; J1650; J1953; U0002

== ENCOUNTER 2023-10-04 19:57 | Inpatient (IN) ==
[2023-10-04] MEDS: Lactated Ringers 1000 ml BAG 1,000 ML IV ONE (20:52)
[2023-10-04] MEDS: Acetaminophen IV 1 GM/100ML 1,000 MG/100 ML BAG IV ONE (20:55)
[2023-10-04 20:59] LABS: Hemoglobin 15.5 g/dL (11.5-14.3); Mean Corpuscular Hemoglobin 32.2 pg (27-33); Mean Corpuscular Hgb Conc 34.4 g/dL (31-36); Mean Corpuscular Volume 93.4 fL (80-97); Mean Platelet Volume 10.3 fL (7.5-11.2); Platelet Count 244 10^3/uL (150-450); Red Blood Count 4.82 10^6/uL (3.63-4.92); Red Cell Distribution Width 12.6 % (12-17); White Blood Count 17.3 10^3/uL (3.8-11.8)
[2023-10-04 21:01] LABS: Activated Partial Thrombo Time 39.9 seconds (26.0-38.0); INR 1.08 (0.83-1.13)
[2023-10-04 21:23] LABS: High Sens Troponin Baseline 4 pg/mL (<15)
[2023-10-04 21:31] LABS: ABS Eosinophils 0.1 10^3/uL (0.0-0.5); ABS Lymphocytes 0.8 10^3/uL (1.0-4.8); ABS Monocytes 0.7 10^3/uL (0.0-0.9); ABS Neutrophils 15.7 10^3/uL (1.5-7.6); ABS Nucleated RBC 0.02 10^3/ul; Eosinophil % 0.8 %; Lymphocyte % 4.6 %; Nucleated Red Blood Cells % 0.1 %/100WBC (0.0-0.8)
[2023-10-04 21:33] LABS: ALT 30 U/L (7-52); Albumin 4.5 g/dL (3.2-5.2); Albumin/Globulin Ratio 1.6 (1-3); Alkaline Phosphatase 108 U/L (35-149); Anion Gap 13 mmol/L (2-16); Blood Urea Nitrogen 17 mg/dL (6-24); C Reactive Protein 84.51 mg/L (<8.01); CO2 Carbon Dioxide 31 mmol/L (22-32); Calcium 9.8 mg/dL (8.6-10.3); Chloride 99 mmol/L (101-111); Creatinine, Serum 0.43 mg/dL (0.51-0.95); Globulin 2.9 g/dL (2-4); Glucose 129 mg/dL (70-100); Lipase 16 U/L (11.0-82.0); Sodium 143 mmol/L (135-145); Total Bilirubin 0.7 mg/dL (0.2-1.0); Total Protein 7.4 g/dL (6.4-8.9); eGFR CKD-EPI 130.8 (>60)
[2023-10-04 21:56] LABS: Venous Bicarbonate HCO3 30.6 mmol/L (24-28)
[2023-10-04 22:24] LABS: High Sensitivity Troponin 1 Hr 4 pg/mL (<15)
[2023-10-05] MEDS: Piperacillin/Tazobac 3.375 BAG 3.375 GM/100 ML BAG IV ONE (00:47)
[2023-10-05] MEDS: Vancomycin 1,000 MG in NS 0.9% 250 ml 250 ML IVPB ONE (00:47)
[2023-10-05] MEDS ORDERED: Acetaminophen IV 1 GM/100ML 1,000 MG/100 ML BAG IV PRN (04:19)
[2023-10-05] MEDS: Morphine 2 MG/ML SYRINGE IV ONE (04:19)
[2023-10-05] MEDS: Lactated Ringers 1000 ml BAG 1,000 ML IV ONE (04:19)
[2023-10-05] MEDS ORDERED: Ondansetron 4 mg VIAL 2 MG/ML 2 ml VIAL IV PRN ×2 (04:24→16:03)
[2023-10-05] MEDS: NS 0.9% 1000 ml BAG 1,000 ML IV SCH ×2 (04:38→05:26)
[2023-10-05] MEDS ORDERED: Zosyn per Pharmacy NOTE FOLLOW UP SCH (05:00)
[2023-10-05] MEDS: NS 0.9% 500 ml BAG 500 ML IV ONE (05:45)
[2023-10-05] MEDS: ZOSYN 3.375 GM x ONE DOSE over 30 miuntes IV (05:45)
[2023-10-05] MEDS: D5LR 1000 ml BAG 1,000 ML IV SCH (06:04)
[2023-10-05 06:12] LABS: Urine Appearance Turbid; Urine Bilirubin Negative (Negative); Urine Blood Negative (Negative); Urine Color Yellow; Urine Glucose Negative (Negative); Urine Ketones Trace (Negative); Urine Nitrite Negative (Negative); Urine Protein Trace (Negative); Urine Specific Gravity 1.045 (1.002-1.030); Urine Urobilinogen Negative (Negative); Urine pH 5.5 (5.0-8.0)
[2023-10-05 06:55] LABS: ABS Eosinophils 0.2 10^3/uL (0.0-0.5); ABS Lymphocytes 1.1 10^3/uL (1.0-4.8); ABS Neutrophils 7.3 10^3/uL (1.5-7.6); ABS Nucleated RBC 0.01 10^3/ul; Eosinophil % 2.1 %; Hemoglobin 14.1 g/dL (11.5-14.3); Lymphocyte % 11.5 %; Mean Corpuscular Hemoglobin 32.3 pg (27-33); Mean Corpuscular Hgb Conc 32.7 g/dL (31-36); Mean Corpuscular Volume 98.7 fL (80-97); Mean Platelet Volume 9.7 fL (7.5-11.2); Nucleated Red Blood Cells % 0.1 %/100WBC (0.0-0.8); Platelet Count 191 10^3/uL (150-450); Red Blood Count 4.36 10^6/uL (3.63-4.92); Red Cell Distribution Width 13.1 % (12-17); White Blood Count 9.6 10^3/uL (3.8-11.8)
[2023-10-05 07:19] LABS: Anion Gap 10 mmol/L (2-16); Blood Urea Nitrogen 14 mg/dL (6-24); CO2 Carbon Dioxide 28 mmol/L (22-32); Calcium 8.7 mg/dL (8.6-10.3); Chloride 105 mmol/L (101-111); Creatinine, Serum 0.38 mg/dL (0.51-0.95); Glucose 101 mg/dL (70-100); Sodium 143 mmol/L (135-145); eGFR CKD-EPI 134.8 (>60)
[2023-10-05] MEDS: levETIRAcetam 500 MG/100 ML IV SCH (08:51)
[2023-10-05 09:19] LABS: Potassium, Whole Blood 3.3 mmol/L (3.4-4.5)
[2023-10-05] MEDS: Budesonide NEB 0.5 MG/2 ML NEB.SOLN INH SCH (10:57)
[2023-10-05] MEDS: ZOSYN 3.375 GM Q8H per EXTENDED INFUSION IV SCH ×2 (11:12→13:04)
[2023-10-05] MEDS: Iohexol 350 (CONTRAST) 500 ML MDV IV ONE (11:12)
[2023-10-05] MEDS ORDERED: Metoclopramide 5 MG/ML VIAL (10 mg) IV SLOW PU PRN (11:17)
[2023-10-05 11:19] LABS: Magnesium 2.1 mg/dL (1.9-2.7)
[2023-10-05] MEDS: DOXYcycline 100 MG in NS 0.9% 250 ml 250 ML IVPB SCH (12:27)
[2023-10-05] MEDS: KCL 20 MEQ/100 ML IVPREMIX 20 MEQ/100 ML BAG IV SCH (13:29)
[2023-10-05] MEDS ORDERED: Naloxone 0.4 mg VIAL 0.4 mg/ml 1 ml VIAL IV PRN (16:03)
[2023-10-05] MEDS ORDERED: fentaNYL 100 mcg/2 ml 50 MCG/ML VIAL IV PRN (16:03)
[2023-10-05] MEDS ORDERED: Propofol 10 MG/ML 20 ML BTL ONE (16:18)
[2023-10-05] MEDS ORDERED: Lidocaine 2% PF 5 ML VIAL ONE (16:46)
[2023-10-05] MEDS ORDERED: Phenylephrine 40 mcg/mL 10mL (400mcg) SYRINGE ONE (16:46)
[2023-10-05] MEDS ORDERED: NS 0.45% 1000 ml BAG 1,000 ML IV SCH (17:00)
[2023-10-05] MEDS: Acetaminophen IV 1 GM/100ML 1,000 MG/100 ML BAG IV ONE (18:04)
[2023-10-05] MEDS: levETIRAcetam 1000MG IVPREMIX 1,000 MG/100 ML BAG IVPB SCH (18:04)
[2023-10-05] MEDS: Buffered Lidocaine 1% SYRIN 1 ml INTRADERM ONE (18:05)
[2023-10-05] MEDS: Scopolamine 1 mg/72hr PATCH TRANSDERM ONE (18:06)
[2023-10-05] MEDS: Lactated Ringers 1000 ml BAG 1,000 ML IV SCH (18:08)
[2023-10-06 06:28] LABS: ABS Basophils 0.1 10^3/uL (0.0-0.1); ABS Eosinophils 0.4 10^3/uL (0.0-0.5); ABS Lymphocytes 2.1 10^3/uL (1.0-4.8); ABS Monocytes 0.7 10^3/uL (0.0-0.9); ABS Neutrophils 2.3 10^3/uL (1.5-7.6); Eosinophil % 7.4 %; Hematocrit 40.1 % (35-45); Hemoglobin 13.9 g/dL (11.5-14.3); Lymphocyte % 37.3 %; Mean Corpuscular Hemoglobin 32.3 pg (27-33); Mean Corpuscular Hgb Conc 34.6 g/dL (31-36); Mean Corpuscular Volume 93.2 fL (80-97); Mean Platelet Volume 9.8 fL (7.5-11.2); Nucleated Red Blood Cells % 0.1 %/100WBC (0.0-0.8); Platelet Count 196 10^3/uL (150-450); Red Cell Distribution Width 12.6 % (12-17); White Blood Count 5.7 10^3/uL (3.8-11.8)
[2023-10-06 06:52] LABS: Calcium 8.9 mg/dL (8.6-10.3); Creatinine, Serum 0.36 mg/dL (0.51-0.95); Potassium 3.7 mmol/L (3.5-5.0); eGFR CKD-EPI 136.5 (>60)
[2023-10-06] MEDS: Albuterol 2.5mg/3 ml (0.083%) NEB.SOLN INH SCH (07:16)
[2023-10-06] MEDS: KCL 20 MEQ/100 ML IVPREMIX 20 MEQ/100 ML BAG IV SCH (07:58)
[2023-10-06 08:51] LABS: Magnesium 1.8 mg/dL (1.9-2.7)
[2023-10-07 06:24] LABS: ABS Eosinophils 0.3 10^3/uL (0.0-0.5); ABS Lymphocytes 2.1 10^3/uL (1.0-4.8); ABS Monocytes 0.6 10^3/uL (0.0-0.9); ABS Neutrophils 3.5 10^3/uL (1.5-7.6); ABS Nucleated RBC 0.02 10^3/ul; Eosinophil % 4.1 %; Hematocrit 39.6 % (35-45); Hemoglobin 13.7 g/dL (11.5-14.3); Lymphocyte % 32.5 %; Mean Corpuscular Hemoglobin 32.1 pg (27-33); Mean Corpuscular Hgb Conc 34.6 g/dL (31-36); Mean Corpuscular Volume 92.8 fL (80-97); Mean Platelet Volume 10.1 fL (7.5-11.2); Nucleated Red Blood Cells % 0.2 %/100WBC (0.0-0.8); Platelet Count 224 10^3/uL (150-450); Red Blood Count 4.27 10^6/uL (3.63-4.92); Red Cell Distribution Width 12.5 % (12-17); White Blood Count 6.5 10^3/uL (3.8-11.8)
[2023-10-07 06:35] LABS: Creatinine, Serum 0.31 mg/dL (0.51-0.95); Magnesium 1.6 mg/dL (1.9-2.7); Potassium 3.5 mmol/L (3.5-5.0); eGFR CKD-EPI 141.5 (>60)
[2023-10-07] MEDS: Albuterol 2.5mg/3 ml (0.083%) NEB.SOLN INH SCH (07:18)
[2023-10-07] MEDS: Magnesium Sulf 4 GM/100 ML IV 4,000 MG/100 ML BAG IVPB ONE (08:49)
[2023-10-07] MEDS ORDERED: KCL 20 MEQ/100 ML IVPREMIX 20 MEQ/100 ML BAG IV SCH (11:00)
[2023-10-07] MEDS: cefTRIAXone 1 gm/50 mL D5W 1 GM/50 ML BAG IV SCH (13:10)
[2023-10-07] MEDS: KCL 20 MEQ/100 ML IVPREMIX 20 MEQ/100 ML BAG IV SCH (13:45)
[2023-10-07] MEDS: Acetaminophen IV 1 GM/100ML 1,000 MG/100 ML BAG IV SCH (18:42)
[2023-10-08 06:22] LABS: Anion Gap 9 mmol/L (2-16); Blood Urea Nitrogen 3 mg/dL (6-24); CO2 Carbon Dioxide 24 mmol/L (22-32); Calcium 8.6 mg/dL (8.6-10.3); Chloride 109 mmol/L (101-111); Creatinine, Serum < 0.30 mg/dL (0.51-0.95); Glucose 111 mg/dL (70-100); Potassium 3.7 mmol/L (3.5-5.0); Sodium 142 mmol/L (135-145); eGFR CKD-EPI 142.7 (>60)
[2023-10-08] MEDS: Prochlorperazine 5 mg/ml 2 ml VIAL (10 mg) IV PRN (16:04)
[2023-10-08] MEDS: Pantoprazole VIAL 40 MG VIAL IV SCH (17:05)
[2023-10-08] MEDS: Scopolamine 1 mg/72hr PATCH TRANSDERM SCH (18:16)
[2023-10-09 05:37] LABS: ABS Eosinophils 0.3 10^3/uL (0.0-0.5); ABS Lymphocytes 2.4 10^3/uL (1.0-4.8); ABS Monocytes 0.4 10^3/uL (0.0-0.9); ABS Neutrophils 2.5 10^3/uL (1.5-7.6); ABS Nucleated RBC 0.01 10^3/ul; Eosinophil % 5.1 %; Hematocrit 37.7 % (35-45); Hemoglobin 12.9 g/dL (11.5-14.3); Lymphocyte % 42.4 %; Mean Corpuscular Hemoglobin 32.2 pg (27-33); Mean Corpuscular Hgb Conc 34.4 g/dL (31-36); Mean Corpuscular Volume 93.7 fL (80-97); Mean Platelet Volume 9.5 fL (7.5-11.2); Nucleated Red Blood Cells % 0.2 %/100WBC (0.0-0.8); Platelet Count 227 10^3/uL (150-450); Red Blood Count 4.02 10^6/uL (3.63-4.92); Red Cell Distribution Width 12.6 % (12-17); White Blood Count 5.6 10^3/uL (3.8-11.8)
[2023-10-09 06:05] LABS: Anion Gap 8 mmol/L (2-16); Blood Urea Nitrogen 5 mg/dL (6-24); CO2 Carbon Dioxide 26 mmol/L (22-32); Calcium 8.2 mg/dL (8.6-10.3); Chloride 108 mmol/L (101-111); Creatinine, Serum < 0.30 mg/dL (0.51-0.95); Glucose 87 mg/dL (70-100); Magnesium 1.6 mg/dL (1.9-2.7); Sodium 142 mmol/L (135-145); eGFR CKD-EPI 142.7 (>60)
[2023-10-09] MEDS: Magnesium Sulfate 2 gm BAG 2 GM/50 ML BAG IVPB ONE (08:53)
[2023-10-09 09:22] LABS: Potassium, Whole Blood 3.1 mmol/L (3.4-4.5)
[2023-10-09] MEDS: KCL 20 MEQ/100 ML IVPREMIX 20 MEQ/100 ML BAG IV SCH (13:12)
[2023-10-10] MEDS ORDERED: Hyaluronidase HUMAN 15 UNIT in Sodium Chloride 0.9% 0.9 ML INTRADERM ONE (05:11)
[2023-10-10 06:46] LABS: ALT 20 U/L (7-52); AST 19 U/L (13-39); Albumin 3.8 g/dL (3.2-5.2); Albumin/Globulin Ratio 1.7 (1-3); Alkaline Phosphatase 76 U/L (35-149); Anion Gap 8 mmol/L (2-16); Blood Urea Nitrogen 5 mg/dL (6-24); CO2 Carbon Dioxide 24 mmol/L (22-32); Calcium 8.7 mg/dL (8.6-10.3); Chloride 107 mmol/L (101-111); Creatinine, Serum < 0.30 mg/dL (0.51-0.95); Globulin 2.2 g/dL (2-4); Glucose 93 mg/dL (70-100); Magnesium 1.8 mg/dL (1.9-2.7); Potassium 3.6 mmol/L (3.5-5.0); Sodium 139 mmol/L (135-145); Total Bilirubin 0.6 mg/dL (0.2-1.0); eGFR CKD-EPI 142.7 (>60)
[2023-10-10 12:08] LABS: Phosphorus 2.3 mg/dL (2.5-5.0)
[2023-10-10] MEDS: D5LR 1000 ml BAG 1,000 ML IV SCH (18:00)
[2023-10-10] MEDS: TPN 24 HR with Dextrose 50% Water 500 ML, Amino Acid Infusion 10% 850 ML, Sterile Water... CENT\\PICC SCH (18:01)
[2023-10-11 06:56] LABS: ALT 24 U/L (7-52); AST 24 U/L (13-39); Albumin 3.5 g/dL (3.2-5.2); Albumin/Globulin Ratio 1.8 (1-3); Alkaline Phosphatase 72 U/L (35-149); Anion Gap 5 mmol/L (2-16); Blood Urea Nitrogen 5 mg/dL (6-24); CO2 Carbon Dioxide 29 mmol/L (22-32); Calcium 8.5 mg/dL (8.6-10.3); Chloride 110 mmol/L (101-111); Cholesterol 100 mg/dL; Creatinine, Serum < 0.30 mg/dL (0.51-0.95); Globulin 1.9 g/dL (2-4); Glucose 98 mg/dL (70-100); Magnesium 1.8 mg/dL (1.9-2.7); Phosphorus 3.9 mg/dL (2.5-5.0); Potassium 3.5 mmol/L (3.5-5.0); Prealbumin 17 mg/dL (18-38); Sodium 144 mmol/L (135-145); Total Bilirubin 0.4 mg/dL (0.2-1.0); Total Protein 5.4 g/dL (6.4-8.9); Triglycerides 86 mg/dL; eGFR CKD-EPI 142.7 (>60)
[2023-10-11] MEDS: Albuterol/Ipratropium NEB.SOL (2.5/0.5 MG) 3 ML NEB.SOLN INH PRN (07:15)
[2023-10-11] MEDS: Magnesium Sulfate IV 1GM/100ML 1 GM/100 ML BAG IV ONE (11:04)
[2023-10-12 06:50] LABS: ALT 51 U/L (7-52); AST 59 U/L (13-39); Albumin 3.4 g/dL (3.2-5.2); Albumin/Globulin Ratio 1.5 (1-3); Alkaline Phosphatase 74 U/L (35-149); Anion Gap 8 mmol/L (2-16); Blood Urea Nitrogen 6 mg/dL (6-24); CO2 Carbon Dioxide 27 mmol/L (22-32); Calcium 8.6 mg/dL (8.6-10.3); Chloride 107 mmol/L (101-111); Cholesterol 98 mg/dL; Creatinine, Serum < 0.30 mg/dL (0.51-0.95); Globulin 2.3 g/dL (2-4); Glucose 99 mg/dL (70-100); Phosphorus 2.9 mg/dL (2.5-5.0); Potassium 3.7 mmol/L (3.5-5.0); Prealbumin 19 mg/dL (18-38); Sodium 142 mmol/L (135-145); Total Bilirubin 0.5 mg/dL (0.2-1.0); Total Protein 5.7 g/dL (6.4-8.9); Triglycerides 136 mg/dL; eGFR CKD-EPI 142.7 (>60)
[2023-10-12] MEDS: Diatrizoate Meg/Sod(CONTRAST) 30 ML ORAL.SOLN PO ONE (12:49)
[2023-10-13 06:49] LABS: Anion Gap 7 mmol/L (2-16); Blood Urea Nitrogen 13 mg/dL (6-24); CO2 Carbon Dioxide 27 mmol/L (22-32); Calcium 8.6 mg/dL (8.6-10.3); Chloride 110 mmol/L (101-111); Creatinine, Serum < 0.30 mg/dL (0.51-0.95); Glucose 99 mg/dL (70-100); Magnesium 1.9 mg/dL (1.9-2.7); Phosphorus 3.1 mg/dL (2.5-5.0); Potassium 3.9 mmol/L (3.5-5.0); Sodium 144 mmol/L (135-145); eGFR CKD-EPI 142.7 (>60)
[2023-10-13] MEDS: TPN 24 HR with Dextrose 50% Water 500 ML, Amino Acid Infusion 10% 850 ML, Sterile Water... CENT\\PICC SCH (17:46)
[2023-10-14 09:16] LABS: Anion Gap 9 mmol/L (2-16); Blood Urea Nitrogen 17 mg/dL (6-24); CO2 Carbon Dioxide 25 mmol/L (22-32); Calcium 9.2 mg/dL (8.6-10.3); Chloride 109 mmol/L (101-111); Creatinine, Serum < 0.30 mg/dL (0.51-0.95); Glucose 125 mg/dL (70-100); Phosphorus 4.6 mg/dL (2.5-5.0); Potassium 4.7 mmol/L (3.5-5.0); Sodium 143 mmol/L (135-145); eGFR CKD-EPI 142.7 (>60)
[2023-10-14] MEDS: levETIRAcetam LIQ 500 MG/5 ML UDC PEG TUBE SCH (20:52)
[2023-10-15] MEDS: levETIRAcetam LIQ 500 MG/5 ML UDC PEG TUBE SCH (08:51)
[2023-10-16 06:58] LABS: Albumin 3.6 g/dL (3.2-5.2); Albumin/Globulin Ratio 1.6 (1-3); Calcium 9.5 mg/dL (8.6-10.3); Creatinine, Serum 0.3 mg/dL (0.51-0.95); Globulin 2.3 g/dL (2-4); Magnesium 1.9 mg/dL (1.9-2.7); Phosphorus 5.5 mg/dL (2.5-5.0); Potassium 3.9 mmol/L (3.5-5.0); Total Bilirubin 0.4 mg/dL (0.2-1.0); Total Protein 5.9 g/dL (6.4-8.9); eGFR CKD-EPI 142.7 (>60)
[2023-10-17 06:50] LABS: Albumin 3.8 g/dL (3.2-5.2); Albumin/Globulin Ratio 1.7 (1-3); Calcium 9.4 mg/dL (8.6-10.3); Creatinine, Serum 0.32 mg/dL (0.51-0.95); Globulin 2.3 g/dL (2-4); Potassium 4.1 mmol/L (3.5-5.0); Total Bilirubin 0.4 mg/dL (0.2-1.0); Total Protein 6.1 g/dL (6.4-8.9); eGFR CKD-EPI 140.5 (>60)
[2023-10-17 09:26] VITALS: BP 103/65
== END 2023-10-17 13:50 | DRG 710 ==
LOC: ED 19:57 → EDHOLD 19:57 → SUATTDRO 10-05 04:12 → MED 10-05 10:24 → SUATTDRO 10-07 11:47
PROVIDERS: ADMIT Hospitalist; ATTEND Hospitalist
PROC: O.GIFSC (2023-10-05 12:05)
PROC: O.GIEGD (2023-10-11 15:05)

== ENCOUNTER 2024-04-13 08:47 | Observation (INO) ==
[2024-04-13 09:45] LABS: Hematocrit 42.8 % (35-45); Hemoglobin 14.6 g/dL (11.5-14.3); Mean Corpuscular Hemoglobin 31.3 pg (27-33); Mean Corpuscular Hgb Conc 34.2 g/dL (31-36); Mean Corpuscular Volume 91.6 fL (80-97); Red Blood Count 4.67 10^6/uL (3.63-4.92); Red Cell Distribution Width 12.9 % (12-17)
[2024-04-13] MEDS: Albuterol/Ipratropium NEB.SOL (2.5/0.5 MG) 3 ML NEB.SOLN INH ONE (10:25)
[2024-04-13 10:32] LABS: ALT 25 U/L (7-52); Albumin 4.1 g/dL (3.2-5.2); Albumin/Globulin Ratio 1.6 (1-3); Alkaline Phosphatase 92 U/L (35-149); Anion Gap 9 mmol/L (2-16); Blood Urea Nitrogen 16 mg/dL (6-24); C Reactive Protein 48.53 mg/L (<8.01); CO2 Carbon Dioxide 28 mmol/L (22-32); Calcium 9.3 mg/dL (8.6-10.3); Chloride 100 mmol/L (101-111); Creatinine, Serum 0.39 mg/dL (0.51-0.95); Globulin 2.6 g/dL (2-4); Glucose 103 mg/dL (70-100); Sodium 137 mmol/L (135-145); Total Bilirubin 0.6 mg/dL (0.2-1.0); Total Protein 6.7 g/dL (6.4-8.9); eGFR CKD-EPI 133.1 (>60)
[2024-04-13 10:33] LABS: ABS Basophils 0.1 10^3/uL (0.0-0.1); ABS Eosinophils 0.4 10^3/uL (0.0-0.5); ABS Lymphocytes 3.4 10^3/uL (1.0-4.8); ABS Monocytes 0.8 10^3/uL (0.0-0.9); ABS Neutrophils 9.3 10^3/uL (1.5-7.6); ABS Nucleated RBC 0.01 10^3/ul; Eosinophil % 2.9 %; Lymphocyte % 24.4 %; Nucleated Red Blood Cells % 0.1 %/100WBC (0.0-0.8); Platelet Count Platelets clumped. 10^3/uL (150-450)
[2024-04-13] MEDS: Lactated Ringers 1000 ml BAG 1,000 ML IV ONE ×2 (12:03→18:16)
[2024-04-13 12:06] LABS: Potassium Redraw 3.9 mmol/L (3.5-5.0)
[2024-04-13] MEDS: Amoxicillin/Clavul 875/125 TAB (Augmentin 875 tab) ONE (14:28)
[2024-04-13] MEDS: cefTRIAXone 1 gm/50 mL D5W 1 GM/50 ML BAG IV ONE (14:30)
[2024-04-13] MEDS: Azithromycin 500 mg/250 ml NS 500 MG/250 ML BAG IVPB ONE (15:41)
[2024-04-13] MEDS ORDERED: Polyethylene Glycol 3350 17 GM PACKET G TUBE PRN ×2 (16:57→18:06)
[2024-04-13] MEDS ORDERED: Sodium Phosphate ADULT ENEMA 133 ML BTL PR PRN (17:08)
[2024-04-13] MEDS ORDERED: Albuterol 2.5mg/3 ml (0.083%) NEB.SOLN INH PRN (17:08)
[2024-04-13] MEDS ORDERED: SENNOSIDES FEED TUBE PRN (17:08)
[2024-04-13] MEDS ORDERED: guaiFENesin 100 mg/5 ml LIQ unit dose cup FEED TUBE PRN (17:08)
[2024-04-13] MEDS ORDERED: Polyethylene Glycol 3350 BTL 238 GM BTL G TUBE PRN (17:08)
[2024-04-13] MEDS ORDERED: Bacitracin OINTMENT TUBE TOPICAL PRN (17:26)
[2024-04-13] MEDS: cefTRIAXone 1 gm/50 mL D5W 1 GM/50 ML BAG IV SCH (17:29)
[2024-04-13] MEDS ORDERED: Zinc Oxide 40% (TOPICAL) TUBE TOPICAL PRN (17:40)
[2024-04-13] MEDS: HYDROmorphone 1 MG/1 ML SYRINGE IV SLOW PU ONE (18:13)
[2024-04-13] MEDS ORDERED: Budesonide NEB 0.5 MG/2 ML NEB.SOLN INH SCH (19:00)
[2024-04-13] MEDS: Budesonide NEB 0.5 MG/2 ML NEB.SOLN INH SCH (19:31)
[2024-04-13] MEDS: Olopatadine 0.1% OPHTH (NF) 1 DROP BTL BOTH EYES SCH (20:15)
[2024-04-14 06:25] LABS: ABS Basophils 0.1 10^3/uL (0.0-0.1); ABS Eosinophils 0.3 10^3/uL (0.0-0.5); ABS Lymphocytes 2.9 10^3/uL (1.0-4.8); ABS Monocytes 0.6 10^3/uL (0.0-0.9); ABS Neutrophils 3.9 10^3/uL (1.5-7.6); Eosinophil % 3.8 %; Hematocrit 39.6 % (35-45); Hemoglobin 13.7 g/dL (11.5-14.3); Lymphocyte % 37.4 %; Mean Corpuscular Hemoglobin 31.6 pg (27-33); Mean Corpuscular Hgb Conc 34.5 g/dL (31-36); Mean Corpuscular Volume 91.5 fL (80-97); Mean Platelet Volume 10.1 fL (7.5-11.2); Nucleated Red Blood Cells % 0.1 %/100WBC (0.0-0.8); Platelet Count 234 10^3/uL (150-450); Red Blood Count 4.33 10^6/uL (3.63-4.92); Red Cell Distribution Width 12.8 % (12-17); White Blood Count 7.8 10^3/uL (3.8-11.8)
[2024-04-14 06:52] LABS: Calcium 9.2 mg/dL (8.6-10.3); Creatinine, Serum 0.3 mg/dL (0.51-0.95); Potassium 3.8 mmol/L (3.5-5.0); eGFR CKD-EPI 141.8 (>60)
[2024-04-14] MEDS: Albuterol 2.5mg/3 ml (0.083%) NEB.SOLN INH SCH (09:09)
[2024-04-14] MEDS: levETIRAcetam LIQ 500 MG/5 ML UDC PEG TUBE SCH (09:40)
[2024-04-14] MEDS: Multivitamins ADULT w/MIN LIQ 15 ML UDC G TUBE SCH (09:40)
[2024-04-14] MEDS: CMCS:Pantoprazole Packet (NF) 40 MG GRANPKT.DR FEED TUBE SCH (09:52)
[2024-04-14 10:32] LABS: Urine Appearance Clear; Urine Bilirubin Negative (Negative); Urine Blood 1+ (Negative); Urine Color Light-Yellow; Urine Glucose Negative (Negative); Urine Ketones 1+ (Negative); Urine Nitrite Negative (Negative); Urine Protein Negative (Negative); Urine Specific Gravity 1.007 (1.002-1.030); Urine Urobilinogen Negative (Negative); Urine pH 7.5 (5.0-8.0)
[2024-04-14 10:33] LABS: Urine Bacteria Absent /HPF (Absent); Urine Red Blood Cell Trace(0-2/hpf) /HPF (0-Trace); Urine Squamous Epithelial Cell Present /HPF (Absent); Urine White Blood Cell Absent /HPF (0-Trace)
[2024-04-14 14:24] VITALS: BP 106/60
[2024-04-14] MEDS ORDERED: Azithromycin 500 mg/250 ml NS 500 MG/250 ML BAG IVPB SCH (17:00)
== END 2024-04-14 14:48 ==
LOC: EDHOLD 08:47 → ED 08:47 → MEDTELE 15:57
PROVIDERS: ADMIT Hospitalist; ATTEND Hospitalist